=== PATIENT | female | born 1950 | race Caucasian/White ===

== ENCOUNTER 2020-08-10 11:09 | Outpatient (CLI) | payer MEDICARE, SELFPAY | END 2020-08-10 11:10 | disposition home or self-care (01) | PROVIDERS: PCP Family Medicine; Referring Provider Internal Medicine Endocrinology, Diabetes & Metabolism; Visit Provider Family Medicine | DX: Q78.2 Osteopetrosis (principal); R00.2 Palpitations; Z13.1 Encounter for screening for diabetes mellitus | CPT/HCPCS: 36415; 84443 ==

== ENCOUNTER 2020-08-16 10:37 | Outpatient (CLI) | payer MEDICARE, SELFPAY ==
[2020-08-16 11:27] LABS: Basophils Percent Auto 0.6 % (0.2-1.2); Eosinophils Absolute Auto 0.2 K/mm3 (0-0.3); Eosinophils Percent Auto 2.8 % (0-4.4); Hematocrit 40.9 % (37.0-47.0); Hemoglobin 13.3 g/dL (12.0-15.0); Immature Granulocyte Absolute 0.02 K/mm3 (0.00-0.031); Immature Granulocyte Percent A 0.3 % (0-0.5); Lymphocytes Absolute Auto 1.44 K/mm3 (0.9-3.2); Lymphocytes Percent Auto 22.8 % (18.3-44.2); Mean Corpuscular HGB Conc 32.5 g/dl (32-36); Mean Corpuscular Hemoglobin 31.1 pg (26-34); Mean Corpuscular Volume 95.8 fl (80-100); Mean Platelet Volume 8.9 fl (7.4-10.4); Monocytes Absolute Auto 0.5 K/mm3 (0.1-0.6); Monocytes Percent Auto 8.2 % (2.6-8.5); Neutrophils Absolute Auto 4.1 K/mm3 (1.3-6.7); Neutrophils Percent Auto 65.3 % (45.5-73.1); Platelet Count Result 293 k/mm3 (150-375); Red Blood Count 4.27 M/mm3 (4.2-5.4); Red Cell Distribution Width 13.5 % (11.5-14.5); White Blood Count 6.3 K/mm3 (4.5-10.0)
[2020-08-16 11:36] LABS: Alanine Aminotransferase 19 U/L (4-35); Albumin Level 3.6 g/dL (3.5-5.1); Alkaline Phosphatase 59 U/L (38-126); Anion Gap 2 mmol/L (8-16); Aspartate Amino Transferase 25 U/L (14-36); Bilirubin,Total 0.3 mg/dL (0.2-1.3); Blood Urea Nitrogen 15 mg/dL (7-17); Calcium 8.6 mg/dL (8.4-10.2); Carbon Dioxide 31 mmol/L (22-30); Chloride 103 mmol/L (98-107); Estimated Glomerular Filt Rate > 60; Glucose 97 mg/dL (65-105); Potassium 3.9 mmol/L (3.4-5.0); Sodium 136 mmol/L (137-145)
[2020-08-16 19:19] LABS: Total Volume 24 Hour Urine 1500 ml
[2020-08-16 19:29] LABS: Creatinine Urine 71.9 mg/dL
[2020-08-18 11:15] LABS: Collagen Type I C-Telopeptide 279 pg/mL (***); Osteocalcin 14 ng/mL (8-32)
[2020-08-22 08:35] LABS: Creatinine, Random Urine 34 mg/dL (20-275); N-Telopeptide (NTx) 23 (***)
== END 2020-08-16 10:38 | disposition home or self-care (01) ==
LOC: ANHLAB 10:39
PROVIDERS: PCP Family Medicine; Visit Provider Internal Medicine Endocrinology, Diabetes & Metabolism
DX: M81.0 Age-related osteoporosis without current pathological fracture (principal)
CPT/HCPCS: 36415; 80053; 81050; 82523; 82570; 83937; 85025

== ENCOUNTER 2021-07-07 02:07 | Day surgery (SDC) | payer MEDICARE, SELFPAY ==
[2021-06-10 09:45] VITALS: BMI 31.9
[2021-07-07 11:09] VITALS: BP 127/80; PULSE 92; RESP 17; TEMP 37.1; O2SAT 98; BMI 31.2
[2021-07-07] MEDS: LACTATED RINGERS 1,000 ML 150 ML IV CONT (11:11)
--- NOTE | 2021-07-07 11:24 | WPDANESEPPF ---
Anes - Initial Pre Proc Eval Procedure: Operation Date: 07/07/21 12:30 Proposed Procedures p Esophagogastroduodenoscopy & Colonoscopy - Akshat Vega MD Date/Time: 07/07/21 11:24 Surgeon: Akshat Vega MD Pre Op Diagnosis: BELINDA Patient Data Age: 70 Gender: F Height: 1.6 m Weight: 80 kg Last Vital Signs Temp 98.7 F 07/07/21 11:09 Pulse 92 07/07/21 11:09 Resp 17 07/07/21 11:09 BP 127/80 07/07/21 11:09 Pulse Ox 98 07/07/21 11:09 Allergies Allergy/AdvReac Type Severity Reaction Status Date / Time ranitidine Allergy Severe Nausea and Verified 07/07/21 11:07 Vomiting cimetidine Allergy Unknown Vomiting Verified 07/07/21 11:07 erythromycin base Allergy Unknown unknown Verified 07/07/21 11:07 Sulfa (Sulfonamide Allergy Unknown Rash Verified 07/07/21 11:07 Antibiotics) Home Medications Medication Instructions Recorded Confirmed Type aspirin 81 mg tablet,delayed 81 mg PO DAILY 07/18/19 07/07/21 History release multivitamin 1 tablet PO DAILY 07/18/19 07/07/21 History acetaminophen 650 mg 650 mg PO Q12H PRN 10/14/19 07/07/21 History tablet,extended release albuterol sulfate 90 mcg/actuation 2 puff INHALATION Q4H PRN #18 gm 10/14/19 07/07/21 Rx aerosol inhaler melatonin 5 mg capsule 5 mg PO HS PRN 10/14/19 07/07/21 History zoledronic acid 5 mg/100 mL in 5 mg IVPB ONCE #100 ml 10/06/20 07/07/21 Rx mannitol 5 %-water intravenous piggybck hydrocodone 10 mg-acetaminophen 1 tablet PO Q6H PRN #28 tablet 06/23/21 07/07/21 Rx 325 mg tablet bupropion HCl 300 mg PO DAILY 06/28/21 07/07/21 History pantoprazole 40 mg PO DAILY 06/28/21 07/07/21 History sertraline 25 mg PO DAILY 06/28/21 07/07/21 History trazodone 50 mg tablet 50 mg PO QHS PRN #30 tablet 07/04/21 07/07/21 Rx meloxicam 7.5 mg tablet 7.5 mg PO DAILY #90 tablet 07/07/21 07/07/21 Rx ropinirole 0.5 mg tablet 0.5 mg PO QHS #90 tablet 07/07/21 07/07/21 Rx Patient hx anesthesia problems: none Family hx anesthesia problems: none Results Review: All pre-operative results and documents have been reviewed as part of the pre-operative evaluation. [facility] Past Medical History Medical History Barretts esophagus Mild intermittent asthma Osteoporosis not affecting current episode of care Palpitations Screening for cholesterol level (~07/18/19) Screening for deficiency anemia (~07/18/19) Severe osteopetrosis Surgical History Surgical History H/O: hysterectomy Family History Family History Sibling Family history of obesity Family history of osteoporosis Depression Hypertension Family history of gastrointestinal disorder Family history of elevated blood lipids Family history of condition Family history of attention deficit hyperactivity disorder (ADHD) Diabetes mellitus Mother Family history of osteoporosis Depression Family history of diabetes mellitus in first degree relative Family history of atrial fibrillation Family history of congestive heart failure Diabetes mellitus Father Depression Family history of diabetes mellitus in first degree relative Family history of coronary artery disease Diabetes mellitus Family history of cardiovascular disease, Onset Age: 89 Other Family history of hypothyroidism Family history of mental disorder Social History Social History Smoking packs per day: 0.75 Smoking cigarettes per day: 15.0 Years smoked: 30 Smoking pack-years: 22.50 Smoking status: Current some day smoker Smoking end date: 09/17/00 Alcohol intake: current Substance use: never Substance use type: does not use Living arrangements: with family Additional occupation/education comments: RN at [employer] Gender identity (if verbalized
--- NOTE | 2021-07-07 11:53 | PM.HPGS ---
History of Present Illness History of Present Illness Consent: Risks, benefits, and alternatives have been discussed and questions answered. Patient agrees to proceed with procedure. Chief complaint: BELINDA Narrative: Elaine Herrera is a 70 year old female who has been investigated for iron deficiency anemia. She had hemoglobin of 13 last year. Now it is 10.7. She has not seen blood in her stools. She does have a history of Kruse's esophagus which was last investigated a little over 2 years ago. She remains on PPI for that. Her last colonoscopy was 7 years ago Review of Systems Review of Systems: All systems reviewed & are unremarkable except as noted in HPI and below PMFSH Past Medical History Medical History Barretts esophagus Mild intermittent asthma Osteoporosis not affecting current episode of care Palpitations Screening for cholesterol level (~07/18/19) Screening for deficiency anemia (~07/18/19) Severe osteopetrosis Surgical History Surgical History H/O: hysterectomy Family History Family History Sibling Family history of obesity Family history of osteoporosis Depression Hypertension Family history of gastrointestinal disorder Family history of elevated blood lipids Family history of condition Family history of attention deficit hyperactivity disorder (ADHD) Diabetes mellitus Mother Family history of osteoporosis Depression Family history of diabetes mellitus in first degree relative Family history of atrial fibrillation Family history of congestive heart failure Diabetes mellitus Father Depression Family history of diabetes mellitus in first degree relative Family history of coronary artery disease Diabetes mellitus Family history of cardiovascular disease, Onset Age: 89 Other Family history of hypothyroidism Family history of mental disorder Social History Social History Smoking packs per day: 0.75 Smoking cigarettes per day: 15.0 Years smoked: 30 Smoking pack-years: 22.50 Smoking status: Current some day smoker Smoking end date: 09/17/00 Alcohol intake: current Substance use: never Substance use type: does not use Living arrangements: with family Additional occupation/education comments: RN at [employer] Gender identity (if verbalized by the patient): Female Spiritual care concerns: No Agree to blood products: Yes Meds Home Medications and Allergies Home Medications Medication Instructions Recorded Confirmed Type aspirin 81 mg tablet,delayed 81 mg PO DAILY 07/18/19 07/07/21 History release multivitamin 1 tablet PO DAILY 07/18/19 07/07/21 History acetaminophen 650 mg 650 mg PO Q12H PRN 10/14/19 07/07/21 History tablet,extended release albuterol sulfate 90 mcg/actuation 2 puff INHALATION Q4H PRN #18 gm 10/14/19 07/07/21 Rx aerosol inhaler melatonin 5 mg capsule 5 mg PO HS PRN 10/14/19 07/07/21 History zoledronic acid 5 mg/100 mL in 5 mg IVPB ONCE #100 ml 10/06/20 07/07/21 Rx mannitol 5 %-water intravenous piggybck hydrocodone 10 mg-acetaminophen 1 tablet PO Q6H PRN #28 tablet 06/23/21 07/07/21 Rx 325 mg tablet bupropion HCl 300 mg PO DAILY 06/28/21 07/07/21 History pantoprazole 40 mg PO DAILY 06/28/21 07/07/21 History sertraline 25 mg PO DAILY 06/28/21 07/07/21 History trazodone 50 mg tablet 50 mg PO QHS PRN #30 tablet 07/04/21 07/07/21 Rx meloxicam 7.5 mg tablet 7.5 mg PO DAILY #90 tablet 07/07/21 07/07/21 Rx ropinirole 0.5 mg tablet 0.5 mg PO QHS #90 tablet 07/07/21 07/07/21 Rx Allergies Allergy/AdvReac Type Severity Reaction Status Date / Time ranitidine Allergy Severe Nausea and Verified 07/07/21 11:07 Vomiting cimetidine Allergy Unknown Vomiting Verified 07/07/21 11:07 erythromycin b
[2021-07-07 12:50] VITALS: BP 124/74; PULSE 77; RESP 29; O2SAT 100
[2021-07-07 13:00] VITALS: BP 130/75; PULSE 76; RESP 20; O2SAT 100
[2021-07-07 13:10] VITALS: BP 126/79; PULSE 75; RESP 20; O2SAT 95
== END 2021-07-07 13:30 | disposition home or self-care (01) ==
PROVIDERS: PCP Family Medicine; Visit Provider Internal Medicine Gastroenterology
PROC: 0DJ08ZZ Inspection of Upper Intestinal Tract, Via Natural or Artificial Opening Endoscopic (ICD-10-PCS; CPT 43235; principal; 2021-07-07 12:30)
DX: D50.9 Iron deficiency anemia, unspecified (principal); K57.30 Diverticulosis of large intestine without perforation or abscess without bleeding; K22.70 Barrett's esophagus without dysplasia; K44.9 Diaphragmatic hernia without obstruction or gangrene; K21.00 Gastro-esophageal reflux disease with esophagitis, without bleeding; Z79.82 Long term (current) use of aspirin; Z79.51 Long term (current) use of inhaled steroids; M81.0 Age-related osteoporosis without current pathological fracture; J45.20 Mild intermittent asthma, uncomplicated; F17.210 Nicotine dependence, cigarettes, uncomplicated; E66.9 Obesity, unspecified; Z68.31 Body mass index [BMI] 31.0-31.9, adult
CPT/HCPCS: 45378; 43239; 88305; J2704; J7120

== ENCOUNTER 2021-10-24 11:49 | Outpatient (CLI) | payer MEDICARE, SELFPAY ==
[2021-10-24 17:09] LABS: Anion Gap 4 mmol/L (8-16); Blood Urea Nitrogen 12 mg/dL (7-17); Calcium 9.8 mg/dL (8.4-10.2); Carbon Dioxide 28 mmol/L (22-30); Chloride 102 mmol/L (98-107); Estimated Glomerular Filt Rate > 60; Glucose 95 mg/dL (65-110); Potassium 4.3 mmol/L (3.4-5.0); Sodium 134 mmol/L (137-145)
[2021-10-24 17:29] LABS: Vitamin D 25 Hydroxy 44.5 ng/mL
[2021-10-26 14:26] LABS: Collagen Type I C-Telopeptide 251 pg/mL (***); Osteocalcin 15 ng/mL (8-32)
== END 2021-10-24 11:50 | disposition home or self-care (01) ==
PROVIDERS: PCP Family Medicine; Referring Provider Internal Medicine Endocrinology, Diabetes & Metabolism; Visit Provider Internal Medicine Endocrinology, Diabetes & Metabolism
DX: M81.0 Age-related osteoporosis without current pathological fracture (principal); S22.060A Wedge compression fracture of T7-T8 vertebra, initial encounter for closed fracture; R79.89 Other specified abnormal findings of blood chemistry; X58.XXXA Exposure to other specified factors, initial encounter
CPT/HCPCS: 36415; 80048; 82306; 82523; 83937

== ENCOUNTER 2023-10-18 01:33 | Day surgery (SDC) | payer MEDICARE, SELFPAY ==
[2023-09-27 10:38] VITALS: BMI 30.1
--- NOTE | 2023-10-16 09:09 | SUR.PREOP ---
Patient called regarding upcoming procedure. Reviewed preop instructions, appointment times, and procedure prep.
--- NOTE | 2023-10-17 16:10 | PM.HPGS ---
History of Present Illness History of Present Illness Consent: Risks, benefits, and alternatives have been discussed and questions answered. Patient agrees to proceed with procedure. Chief complaint: Nausea with vomiting unspecified Narrative: Elaine Herrera is a 73 year old female referred for follow-up of Kruse's esophagus. This was originally diagnosed about 10 years ago. She is also troubled by his nausea and vomiting intermittently over the past year. This almost always occurs at night. She will wake up coughing or gagging at times she cannot catch her breath. She has also lost about 14 lb in the past year. Review of Systems Review of Systems: All systems reviewed & are unremarkable except as noted in HPI and below PMFSH Past Medical History Medical History Barretts esophagus Cataract Cervical radiculopathy Constipation by delayed colonic transit Decreased serum protein level Dependence on other enabling machines and devices Depression with suicidal ideation WOODARD (dyspnea on exertion) Essential hypertension GERD (gastroesophageal reflux disease) History of gastroesophageal reflux (GERD) Hx MRSA infection Hx of fracture Hx of macrocytic anemia Hypersomnia Irregular heart beat MDD (major depressive disorder) Mild intermittent asthma BETSY on CPAP Osteoporosis not affecting current episode of care Palpitations Pulmonary emphysema Pure hypercholesterolemia Screening for cholesterol level (~07/18/19) Screening for deficiency anemia (~07/18/19) Severe osteopetrosis Vitamin D deficiency Surgical History Surgical History H/O kyphoplasty H/O: hysterectomy History of cataract surgery History of sinus surgery History of tonsillectomy and adenoidectomy Family History Family History Sibling Family history of obesity Family history of osteoporosis Depression Hypertension Family history of gastrointestinal disorder Family history of elevated blood lipids Family history of condition Family history of attention deficit hyperactivity disorder (ADHD) Diabetes mellitus Mother Family history of osteoporosis Depression Family history of diabetes mellitus in first degree relative Family history of atrial fibrillation Family history of congestive heart failure Diabetes mellitus Father Depression Family history of diabetes mellitus in first degree relative Family history of coronary artery disease Diabetes mellitus Family history of cardiovascular disease, Onset Age: 89 Other Family history of hypothyroidism Family history of mental disorder Social History Social History Smoking packs per day: 0.75 Smoking cigarettes per day: 15.0 Years smoked: 35 Smoking pack-years: 26.25 Smoking status: Former smoker Tobacco type: cigarettes Smoking end date: 09/17/00 Alcohol intake: current Drinks per week: 3 Alcohol use details: WINE-GLASSES Substance use: never Substance use type: does not use Lack of Transportation: No Lack of Food: Never True Current Housing: I Have Housing Concerned About Future Housing: No Difficulty Paying Gas/Electric Bills: No Difficulty Paying for Meds: No Currently Unemployed: No Difficulty w/ Childcare or Family Care: No Living arrangements: with family Occupation/Education: retired Additional occupation/education comments: RN at [employer] Gender identity (if verbalized by the patient): Female Spiritual care concerns: No Agree to blood products: Yes Meds Home Medications and Allergies Home Medications Medication Instructions Recorded Confirmed Type acetaminophen 650 mg 650 mg PO Q12H PRN Pain 10/14/19 09/27/23 History tablet,extended release (Tylenol Arthritis Pain) zoledronic acid 5 mg/10
[2023-10-18 12:16] VITALS: BP 126/76; PULSE 69; RESP 20; TEMP 36.3; O2SAT 96
[2023-10-18] MEDS: LACTATED RINGERS 1,000 ML 150 ML IV CONT (12:27)
--- NOTE | 2023-10-18 12:47 | WPDANESEPPF ---
Anes - Initial Pre Proc Eval Procedure: Operation Date: 10/18/23 13:00 Proposed Procedures p Esophagogastroduodenoscopy - Akshat Vega MD Date/Time: 10/18/23 12:47 Surgeon: Akshat Vega MD Pre Op Diagnosis: Nausea with vomiting unspecified Patient Data Age: 73 Gender: F Height: 1.6 m Weight: 76 kg Last Vital Signs Temp 36.3 C L 10/18/23 12:16 Pulse 69 10/18/23 12:16 Resp 20 10/18/23 12:16 BP 126/76 10/18/23 12:16 Pulse Ox 96 10/18/23 12:16 O2 Del Method Room Air 10/18/23 12:16 Allergies Allergy/AdvReac Type Severity Reaction Status Date / Time cimetidine Allergy Severe Vomiting Verified 10/18/23 12:15 ranitidine Allergy Severe Nausea and Verified 10/18/23 12:15 Vomiting erythromycin base Allergy Intermediate Nausea and Verified 10/18/23 12:15 Vomiting Sulfa (Sulfonamide Allergy Intermediate Rash Verified 10/18/23 12:15 Antibiotics) Home Medications Medication Instructions Recorded Confirmed Type acetaminophen 650 mg 650 mg PO Q12H PRN Pain 10/14/19 09/27/23 History tablet,extended release (Tylenol Arthritis Pain) zoledronic acid 5 mg/100 mL in IV Q12M 12/27/22 09/25/23 History mannitol 5 %-water intravenous piggybck (Reclast) budesonide 160 mcg-glycopyr 9 2 inh inhalation BID 02/05/23 09/27/23 History mcg-formot 4.8 mcg/actuation HFA inhaler (Breztri Aerosphere) estradiol 0.01% (0.1 mg/gram) See Rx Instructions vaginal 04/05/23 09/27/23 History vaginal cream (Estrace) .COMPLEX PRN DRYNESS cholecalciferol (vitamin D3) 125 125 mcg PO DAILY 05/11/23 09/27/23 History mcg (5,000 unit) capsule pantoprazole 40 mg tablet,delayed See Rx Instructions .Route 09/20/23 09/27/23 Rx release .COMPLEX #90 tabs famotidine 40 mg tablet (Pepcid) 40 mg PO QHS 1 month #30 tabs 09/25/23 09/27/23 Rx docusate sodium 50 mg capsule 50 mg PO HS 09/27/23 09/27/23 History duloxetine 30 mg capsule,delayed 30 mg PO DAILY 09/27/23 09/27/23 History release (Cymbalta) ferrous sulfate 325 mg (65 mg 325 mg PO DAILY 09/27/23 09/27/23 History iron) tablet ropinirole 2 mg tablet 2 mg PO DAILY 09/27/23 09/27/23 History albuterol sulfate 90 mcg/actuation 2 inh inhalation Q4-6H PRN 10/10/23 Rx aerosol inhaler shortness of breath or wheezing #1 ea bupropion HCl 300 mg 24 hr tablet, 450 mg PO QAM #90 tabs 10/10/23 Rx extended release hydrochlorothiazide 25 mg tablet 25 mg PO DAILY PRN Edema 10/10/23 History meloxicam 7.5 mg tablet 7.5 mg PO DAILY #90 tabs 10/10/23 Rx trazodone 50 mg tablet 100 mg PO QHS PRN insomnia #90 tabs 10/10/23 Rx Patient hx anesthesia problems: none Family hx anesthesia problems: none Results Review: All pre-operative results and documents have been reviewed as part of the pre-operative evaluation. [facility] Past Medical History Medical History Barretts esophagus Cataract Cervical radiculopathy Constipation by delayed colonic transit Decreased serum protein level Dependence on other enabling machines and devices Depression with suicidal ideation WOODARD (dyspnea on exertion) Essential hypertension GERD (gastroesophageal reflux disease) History of gastroesophageal reflux (GERD) Hx MRSA infection Hx of fracture Hx of macrocytic anemia Hypersomnia Irregular heart beat MDD (major depressive disorder) Mild intermittent asthma BETSY on CPAP Osteoporosis not affecting current episode of care Palpitations Pulmonary emphysema Pure hypercholesterolemia Screening for cholesterol level (~07/18/19) Screening for deficiency anemia (~07/18/19) Severe osteopetrosis Vitamin D deficiency Surgical History Surgical History H/O kyphoplasty H/O: hysterectomy History of cataract surgery History of sinus surgery History of tonsillectomy and adenoidectomy Family History Family History (Reviewed 10/18/23 @ 12:47 by
[2023-10-18 13:28] VITALS: BP 119/72; PULSE 66; RESP 17; O2SAT 96
[2023-10-18 13:38] VITALS: BP 124/79; PULSE 74; RESP 20; O2SAT 97
[2023-10-18 13:48] VITALS: BP 129/79; PULSE 63; RESP 22; O2SAT 100
== END 2023-10-18 13:57 | disposition home or self-care (01) ==
PROVIDERS: PCP Physician Assistant Medical; Visit Provider Internal Medicine Gastroenterology
PROC: 0DJ08ZZ Inspection of Upper Intestinal Tract, Via Natural or Artificial Opening Endoscopic (ICD-10-PCS; CPT 43235; principal; 2023-10-18 13:00)
DX: K21.9 Gastro-esophageal reflux disease without esophagitis (principal); K22.70 Barrett's esophagus without dysplasia; Z79.51 Long term (current) use of inhaled steroids; I10 Essential (primary) hypertension; K59.01 Slow transit constipation; F32.9 Major depressive disorder, single episode, unspecified; J45.20 Mild intermittent asthma, uncomplicated; G47.33 Obstructive sleep apnea (adult) (pediatric); M81.0 Age-related osteoporosis without current pathological fracture; E78.00 Pure hypercholesterolemia, unspecified; J43.9 Emphysema, unspecified; E55.9 Vitamin D deficiency, unspecified; Z87.891 Personal history of nicotine dependence
CPT/HCPCS: 43239; 88305; J2001; J2704; J7120

== ENCOUNTER 2024-06-11 10:13 | Outpatient (CLI) | payer MEDICARE, SELFPAY ==
--- NOTE | ~2024-06-11 | CT_ITS ---
EXAMINATION: CT chest high resolution wo wa DATE: 06/11/2024 10:33 INDICATION: J84.10 - Pulmonary fibrosis, unspecified TECHNIQUE: Computed tomography (CT) of the chest was performed with 100 mL Omnipaque-350 intravenous contrast. Automated exposure control and iterative reconstruction technique were employed. The dose-l ength product was 122.87 mGy-cm. COMPARISON: Outside chest CT dated 06/16/2021. FINDINGS: CHEST: Thoracic aorta: No significant dilation. Mild arch calcification. Lung parenchyma and airways: Moderate diffuse peripheral reticulation. Small air cysts in the bilater al lower lobes. Biapical pleural scarring. Patent airways. Thoracic inlet, axillae and chest wall: No thyroid or soft tissue mass. No axillary lymphadenopathy. Mediastinum: No mass or lymphadenopathy. Prominent central pulmonary arteries. Calcified left hilar n odes. Heart and pericardium: Normal heart size. No pericardial effusion. Coronary artery calcifications: Mild. Pleura: No effusion or mass. Upper abdomen: No significant finding. Thoracic bones: No acute osseous finding in the chest. Moderate height loss at T7, with vertebroplast y cement. Stable superior endplate deformity and height loss at L1. IMPRESSION: Probable UIP pattern of interstitial lung disease, with mild interval progression since the prior [place] dy. CT findings suggestive of pulmonary arterial hypertension. Reviewed, dictated and finalized at location [facility]. IMPRESSION: Probable UIP pattern of interstitial lung disease, with mild interval progressi on since the prior study. CT findings suggestive of pulmonary arterial hypertension.
== END 2024-06-11 10:14 | disposition home or self-care (01) ==
PROVIDERS: PCP Physician Assistant Medical; Visit Provider Internal Medicine Pulmonary Disease
DX: J84.10 Pulmonary fibrosis, unspecified (principal); R91.8 Other nonspecific abnormal finding of lung field
CPT/HCPCS: 71250

== ENCOUNTER 2024-06-16 09:17 | Outpatient (CLI) | payer MEDICARE, SELFPAY ==
--- NOTE | 2024-06-16 16:14 | WPDSIXMINUTE ---
Six Minute Walk Procedure Procedure Performed Pulmonary Stress Test (6 min walk) Six Minute Walk Six Minute Walk: This is a 6 minute walk test. The test was performed and interpreted in accordance with the 2014 ERS/ATS task force guidelines. Findings: The patient's resting room air oxygen saturation measured by pulse oximetry was 95% and heart rate was 67 bpm. Patient ambulated for 366 meters and oxygen saturation remained 90 to 94%. Heart rate at the end of the study was 91 bpm. The patient did not qualify for supplemental oxygen at rest or with ambulation. There are no prior studies for comparison.
--- NOTE | 2024-06-16 16:15 | WPDPFTINT ---
PFT Procedure Performed PFT Procedure Performed Spirometry with Pre/Post Bronchodilator Plethysmography (Lung Vol) Diffusing Cap (DLCO) Flow Vol Loop PFT Interpretation This is a pulmonary function test with pre and post-bronchodilator spirometry, plethysmography and diffusing capacity. The test was performed and results interpreted in accordance with the 2019 and 2005 ATS/ERS Task Force guidelines respectively using the Global Lung Function Initiative-2012 reference equations. Patient demonstrated good effort and cooperation. Reproducibility criteria were met. The quality of the pre bronchodilator spirometry maneuver was Grade A and post bronchodilator spirometry maneuver was Grade A. Findings: Spirometry: The contour the inspiratory expiratory flow tracing are normal. The pre bronchodilator FVC is 2.18 L, 81% predicted. The pre bronchodilator FEV1 is 1.66 L, 80% predicted. The pre bronchodilator FEV1: FVC ratio 76%. The post bronchodilator FVC is 2.40 L, representing a 10% increase. The post bronchodilator FEV1 is 1.78 L, representing an 8% increase. The post bronchodilator FEV1: FVC ratio 74%. Plethysmography: The total lung capacity is 3.92 L, 80% predicted. The functional residual capacity is 2.08 L, 74% predicted. The residual volume is 1.69 L, 77% predicted. Diffusing capacity: The diffusing capacity unadjusted for hemoglobin and carboxyhemoglobin is 13.7, 69% predicted. The diffusing capacity adjusted for alveolar volume is 4.28, 100% predicted. In comparison to previous pulmonary function testing on 12/24/2018 the post bronchodilator FVC is unchanged from 2.65 L to 2.40 L. The post bronchodilator FEV1 is unchanged from 1.94 L to 1.78 L. The total lung capacity is decreased from 6.23 L to 3.92 L. The functional residual capacity has decreased from 4.38 L to 2.08 L. The residual volume has decreased from 3.50 L to 1.69 L. The diffusing capacity unadjusted for hemoglobin and carboxyhemoglobin is decreased from 16.9 to 13.7. The diffusing capacity adjusted for alveolar volume is unchanged from 4.27 to 4.28. Impression: The spirometry is normal without evidence of an obstructive abnormality. There is no significant improvement after inhaling a single dose of albuterol. The lung volumes are normal. The diffusing capacity is normal. In comparison to previous pulmonary function testing on 12/24/2018 there has been a greater than anticipated time dependent decrease in the total lung capacity, functional residual capacity, residual volume and diffusing capacity unadjusted for hemoglobin and carboxyhemoglobin with no significant change in the FVC, FEV1 or diffusing capacity adjusted for alveolar volume. Clinical correlation is recommended.
== END 2024-06-16 09:18 | disposition home or self-care (01) ==
PROVIDERS: PCP Physician Assistant Medical; Visit Provider Internal Medicine Pulmonary Disease
DX: J84.10 Pulmonary fibrosis, unspecified (principal); Z87.891 Personal history of nicotine dependence
CPT/HCPCS: 94060; 94618; 94726; 94729

== ENCOUNTER 2024-06-18 12:16 | Outpatient (CLI) | payer MEDICARE, SELFPAY ==
[2024-06-18 13:44] LABS: Vitamin D 25 Hydroxy 78.9 ng/mL
[2024-06-19 15:14] LABS: SS-A <1.0 NEG AI (<1.0 NEG); SS-B <1.0 NEG AI (<1.0 NEG)
[2024-06-19 15:39] LABS: Anti Cyclic Citrullinated Pept <16 UNITS
[2024-06-20 11:18] LABS: Anti Nuclear Antibody Pattern Cytoplasmic; Anti Nuclear Antibody Titer 1:40 titer
[2024-06-21 12:43] LABS: ANCA Screen NEGATIVE (NEGATIVE)
== END 2024-06-18 12:17 | disposition home or self-care (01) ==
LOC: ANHLAB 12:23
PROVIDERS: Internal Medicine Endocrinology, Diabetes & Metabolism; PCP Physician Assistant Medical; Visit Provider Internal Medicine Pulmonary Disease
DX: J84.10 Pulmonary fibrosis, unspecified (principal); R79.89 Other specified abnormal findings of blood chemistry; M81.0 Age-related osteoporosis without current pathological fracture
CPT/HCPCS: 36415; 82306; 86036; 86038; 86039; 86200; 86235

== ENCOUNTER 2024-07-15 14:16 | Outpatient (CLI) | payer MEDICARE, SELFPAY ==
--- NOTE | 2024-07-15 14:29 | ECHO_ITS ---
Patient Info Name: Elaine Herrera Age: 73 years : 1950 Gender: Female Ht: 62 in Wt: 150 lbs BSA: 1.74 m2 HR: 79 bpm BP: 120 / 71 mmHg Technical Quality: Fair Exam Date: 07/15/2024 2:45 PM Exam Location: Echo Lab Patient Status: Outpatient Admit Date: 07/15/2024 Staff Ordering Physician: Mendoza Webre MD Lubrication Worker: Vanda Moody RDCS Attending Provider: Mendoza Weber MD Referring Physician: Tia JARA; Exam Type: CA echo doppler color flow Study Info Indications R06.09 - Other forms of dyspnea - G47.33 sleep apnea - G47.33 Device dependence Complete two-dimensional, color flow and Doppler transthoracic echocardiogram is performed. Summary 1. Complete two-dimensional, color flow and Doppler transthoracic echocardiogram is performed. 2. Left ventricular chamber dimension is normal. 3. Left ventricular systolic function is normal, estimated at 60-65%. 4. The left ventricular diastolic function is grade I diastolic dysfunction. 5. E/e' 12 is mildly elevated. 6. Global longitudinal strain is normal at -17.4%. 7. Left atrial chamber dimension is mildly enlarged. 8. There is mild aortic valve sclerosis. 9. There is mild aortic valve regurgitation. 10. There is trace mitral valve regurgitation. 11. There is mild to moderate tricuspid valve regurgitation. 12. Mild pulmonary hypertension, estimated pulmonary arterial systolic pressure is 48 mmHg. 13. There is trace pulmonic regurgitation. Left Ventricle E/e' 12 is mildly elevated. Global longitudinal strain is normal at -17.4%. Left ventricular chamber dimension is normal. Left ventricular systolic function is normal, estimated at 60-65%. The left ventricular diastolic function is grade I diastolic dysfunction. Right Ventricle Right ventricular systolic function is normal and with normal TAPSE 2.4 cm. Right ventricular chamber dimension is normal. Left Atria Left atrial chamber dimension is mildly enlarged. Right Atria Right atrial chamber dimension is normal. Aortic Valve The aortic valve is trileaflet. There is mild aortic valve sclerosis. There is no aortic valve stenosis. There is mild aortic valve regurgitation. Pulmonic Valve There is trace pulmonic regurgitation. Mitral Valve There is no mitral valve stenosis. There is trace mitral valve regurgitation. Tricuspid Valve There is mild to moderate tricuspid valve regurgitation. Mild pulmonary hypertension, estimated pulmonary arterial systolic pressure is 48 mmHg. Pericardium/Pleural There is no pericardial effusion. Inferior Vena Cava Normal inferior vena cava with >50% collapse upon inspiration consistent with normal right atrial pressure, 5 mmHg. Aorta The aortic root size at the sinus of Valsalva is normal. Left Ventricular Outflow Tract Name Value Normal LVOT 2D LVOT Diameter 1.9 cm LVOT Doppler LVOT Peak Gradient 9 mmHg LVOT Mean Gradient 4 mmHg LVOT VTI 29 cm LVOT VTI/AV VTI Ratio 0.8 LVOT Stroke Volume 84 ml LVOT CO 6.4 l/min LVOT CI 3.7 l/min/m2 Pulmonic Valve Name Value Normal PV Doppler PV Peak Gradient 5 mmHg Mitral Valve Name Value Normal MV Doppler MV Decel Rogers 478 cm/s2 MV PHT 48 ms MV Area (PHT) 4.6 cm2 4.0-5.0 MV Diastolic Function MV E Peak Velocity 79 cm/s MV A Peak Velocity 112 cm/s MV E/A 0.7 MV Decel Time 165 ms Tricuspid Valve Name Value Normal TV Regurgitation Doppler TR Peak Velocity 326 cm/s TR Peak Gradient 32 mmHg Estimated PAP/RSVP RA Pressure 5 mmHg <=5 PA Systolic Pressure 48 mmHg <36 RV Systolic Pressure 48 mmHg <36 Aorta Name Value Normal Ascending Aorta Ao Root Diameter (MM) 2.4 cm Ao Root Diam Index (MM) 1.4 cm/m2 Aortic Valve Name Value Normal AV Doppler AV Peak Velocity 192 cm/s AV Peak Gradient 15 mmHg AV Mean Gradient 7 mmHg AV VTI 35 cm AV Area (Cont Eq VTI) 2.4 cm2 >=3.0 AV Area (Cont Eq Derik) 2.3 cm2 AV Regurgitation 2D LVOT Area 2.9 cm2 AV Regurgitation Doppler AR Decel Time 1,796 ms AR Decel Rogers 225 cm/s2 AR PHT 521 ms Ventricles Name Value Normal LV Dimensions 2D/MM IVS Diastolic Thickness (2D) 0.7 cm 0.6-1.0 IVS Diastole Thickness (MM) 0.9 cm 0.6-0.9 LVID Diastole (2D) 4.8 cm 3.8-5.2 LVID Diastole (MM) 4.9 cm 3.8-5.2 LVIW Diastolic Thickness (2D) 0.9 cm 0.6-0.9 LVIW Diastolic Thickness (MM) 0.9 cm 0.6-0.9 LVID Systole (2D) 2.8 cm 2.2-3.5 LVID Systole (MM) 2.8 cm 2.2-3.5 LVOT Diameter 1.9 cm LV Mass (2D Cubed) 125.94 g 67.00-162.00 LV Mass Index (2D Cubed) 72 g/m2 43-95 Relative Wall Thickness (2D) 0.37 LV Mass (MM Cubed) 155.77 g 67.00-162.00 LV Mass Index (MM Cubed) 89 g/m2 43-95 Relative Wall Thickness (MM) 0.37 LV Fractional Shortening/Ejection Fraction 2D/MM LV Fractional Shortening (2D) 40 % 27-45 LV Fractional Shortening (MM) 43 % 27-45 LV EF (MM Teicholz) 73 % 54-74 LV EF (2D Teicholz) 71 % 54-74 LV Diastolic Volume (4C MOD) 72 ml LV EF (4C MOD) 71 % LV Diastolic Volume (2C MOD) 39 ml LV EF (2C MOD) 71 % LV Diastolic Volume (BP MOD) 52 ml 46-106 LV Diastolic Volume Index (BP MOD) 30 ml/m2 29-61 LV Systolic Volume (BP MOD) 15 ml 14-42 LV Systolic Volume Index (BP MOD) 9 ml/m2 8-24 LV EF (BP MOD) 71 % 54-74 LV Diastolic Length (4C) 7.8 cm LV Systolic Length (4C) 6.0 cm LV Stroke Volume (4C MOD) 51 ml Atria Name Value Normal LA Dimensions LA Dimension (MM) 4.5 cm 2.7-3.8 LA Volume (4C A-L) 66 ml LA Volume (BP A-L) 63 ml RA Dimensions RA Area (4C) 16.7 cm2 <=18.0 EchoPAC Name Value Normal FABIAN AA peak sys SL (AWMA) 6.0 % AAS peak sys SL (AWMA) 25.9 % AI peak sys SL (AWMA) 18.5 % AL peak sys SL (AWMA) 17.2 % AP peak sys SL (AWMA) 16.2 % peak sys SL (AWMA) 23.6 % AVC (AWMA) 380 ms BA peak sys SL (AWMA) 18.3 % BAS peak sys SL (AWMA) 16.7 % BI peak sys SL (AWMA) 17.5 % BL peak sys SL (AWMA) 26.6 % BP peak sys SL (AWMA) 14.4 % BS peak sys SL (AWMA) 11.3 % G peak SL(A2C) (AWMA) 15.4 % G peak SL(A4C) (AWMA) 20.1 % G peak SL(APLAX) (AWMA) 16.8 % G peak SL(Avg) (AWMA) 17.5 % MA peak sys SL (AWMA) 8.5 % MAS peak sys SL (AWMA) 19.6 % IL peak sys SL (AWMA) 20.6 % ML peak sys SL (AWMA) 23.6 % MP peak sys SL (AWMA) 9.4 % MS peak sys SL (AWMA) 18.7 % Report Signatures
== END 2024-07-15 14:17 | disposition home or self-care (01) ==
LOC: ANHCARD 14:17
PROVIDERS: PCP Physician Assistant Medical; Visit Provider Internal Medicine Pulmonary Disease
DX: I35.8 Other nonrheumatic aortic valve disorders (principal); I08.3 Combined rheumatic disorders of mitral, aortic and tricuspid valves; I27.20 Pulmonary hypertension, unspecified; G47.33 Obstructive sleep apnea (adult) (pediatric); Z99.89 Dependence on other enabling machines and devices
CPT/HCPCS: 93306

== ENCOUNTER 2024-07-31 13:19 | Outpatient (CLI) | payer MEDICARE, SELFPAY ==
--- NOTE | 2024-08-01 14:19 | WPDSIXMINUTE ---
Six Minute Walk Procedure Procedure Performed Pulmonary Stress Test (6 min walk) Six Minute Walk Six Minute Walk: This is a 6 minute walk test. The test was performed and interpreted in accordance with the 2014 ERS/ATS task force guidelines. Findings: The patient's resting room air oxygen saturation measured by pulse oximetry was 97%, the heart rate was 69 bpm, and the modified Naseem dyspnea score was 0. Patient ambulated for 366 meters and oxygen saturation remained 93 to 97%. At the end of the study the heart rate was 78 bpm and the modified Naseem dyspnea score was 1 to 2. The patient did not qualify for supplemental oxygen at rest or with ambulation. There are no prior studies for comparison.
== END 2024-07-31 13:20 | disposition home or self-care (01) ==
LOC: ANHPFT 13:20
PROVIDERS: PCP Physician Assistant Medical; Visit Provider Internal Medicine Pulmonary Disease
DX: J84.10 Pulmonary fibrosis, unspecified (principal)
CPT/HCPCS: 94618

== ENCOUNTER 2024-12-31 14:21 | Outpatient (CLI) | payer MEDICARE, SELFPAY ==
--- NOTE | ~2024-12-31 | CT_ITS ---
CT Scan of the Chest without Contrast: Clinical Indication: Pulmonary fibrosis Technique: Contiguous sections were acquired throughout the chest without intravenous contrast. Dose reduction technique was used on this scan by utilizing automated exposure control and iterative recon struction technique. The dose-length product (DLP) was 142.35 mGy-cm. COMPARISON: 06/11/2024 Findings: There is no evidence of any significant mediastinal, hilar or axillary lymphadenopathy. The mediastin al soft tissues appear normal. There is no evidence of pleural or pericardial effusion. There is moderate emphysema. There is extensive peripheral chronic interstitial thickening and subple ural reticulation, probable upper lobe predominance. Images through the upper abdomen reveal no abnormalities. Stable compression fractures of L1, L2, and T7. Impression: Chronic interstitial pulmonary disease, essentially stable from prior exam. Moderate emphysema. Stable spinal compression fractures. Reviewed, dictated and finalized at [facility]. Impression: Chronic interstitial pulmonary disease, essentially stable from prior exam. Moderate emphysema. Stable spinal compression fractures.
--- OUTSIDE RECORDS SUMMARY | 2024-12-31 15:43 | XMS_ITS | Clinical Summary ---
Author Organization [facility] Address [address] [place] [address] Phone Care Team Providers Care Membership Coordinator Name Role Phone Tiffanie Quinones Jodie DO Primary Care Provide r Allergies Active Allergy Reactions Criticality Noted Date Comments Erythromycin Vomiting 01/18/2020 Sulfa Antibiotics Rash 01/18/2020 Medications buPROPion (WELLBUTRIN XL) 300 MG TABLET SR 24 HR XL tablet Take 300 mg by mouth every morning. Active aspirin 81 MG Chewable Tablet Take 81 mg by mouth daily. Active hydroCHLOROthiaz maria esther 12.5 MG Tablet Take by mouth daily. Active pantoprazole (PROTONIX) 40 MG Pack 40 mg by Per NG tube route daily. Active sertraline (ZOLOFT) 25 MG Tablet Take 25 mg by mouth daily. Active Fluticasone Propionate, Inhal, (FLOVENT IN) take by inhalation. Active Acetaminophen (TYLENOL PO) Take 650 mg by mouth. Active Active Problems No known active problems Social History Tobacco Use Types Packs/Day Years Used Date Smoking Tobacco: Never Assessed Comments Unknown Sex and Gender Information Value Date Recorded Sex Assigned at Not on file Legal Sex Female 2:16 PM CDT Gender Identity Not on file Sexual Orientation Not on file Plan of Treatment Health Maintenance Due Date Last Done Comments Hepatitis C Virus (HCV) Screening 1950 TdaP Immunization 1950 Colonoscopy 1996 Colorectal Cancer Screening 1996 Cologuard 2001 Immunochemical Fecal Occult Blood 2001 Pneumococcal Immunization (5 0+ years) (1 of 1 - PCV) 2001 Zoster Immunization (1 of 2) 2001 Influenza Immunization (#1) 2024 SARS-COV-2 Immunization ( season) 2024 08/01/2021, 12/06/2020, 10/28/2020 Respiratory Syncytial Virus (RSV) Immunization (Adult) (1 - 1-dose 75+ series) 2026 Hepatitis B Immunization Aged Out No longer eligible based on patient's age to complete this topic Meningococcal Immunization (ACWY) Aged Out No longer eligible b ased on patient's age to complete this topic Rotavirus Immunization Aged Out No lo nger eligible based on patient's age to complete this topic Insurance MEDICARE Care Teams Membership Coordinator Relationship Specialty Start Date End Date Tiffanie Quinones DO [address] [place] [id number] PCP - General Family Medicine 01/18/20
--- OUTSIDE RECORDS SUMMARY | 2024-12-31 15:43 | XMS_ITS | Clinical Summary ---
Author Organization [facility] Address [address] [place] [address] Care Team Providers Care Professional Shopper Name Role Phone Issa Hawkins MD Unavailable [phone] Dana Jim Primary Care Provider [phone] Allergies Active Allergy Reactions Criticality Noted Date Comments Erythromycin Vomiting 01/18/2020 Sulfa Antibiotics Rash Low 01/18/2020 Sertraline Vomiting 11/08/2023 Medications * This document contains information received from the source organization and may not represent a complete record from that organization. buPROPion XL 300 MG 24 hr tablet Take 1 tablet (300 mg total) by mouth daily. Active pantoprazole EC 40 MG tablet Take 40 mg by mouth daily. Active Senna 8.6 MG tablet Take 1 tablet by mouth daily as needed for Constipation. Active Albuterol Sulfate 108 (90 Base) MCG/ACT AEROSOL POWDER, BREATH ACTIVATED Inhale 2 puffs into the lungs every 4 (four) hours as needed (SOB). Active Acetaminophen 325 MG Cap Take 1 tablet by mouth 4 (four) times daily as needed. Active Meloxicam 7.5 MG TABLET DISPERSIBLE Take 1 tablet by mouth daily. Active rOPINIRole 0.5 MG tablet Take 1 mg by mouth nightly. Active zoledronic acid (RECLAST) 5 MG/100ML Solution infusion Inject 5 mg into the vein. yearly Active ferrous sulfate, 65 mg elemental, 325 (65 FE) MG tablet Take 325 mg by mouth daily as needed (after giving blood). Takes with breakfast Active Vitamin D3 125 mcg Tab Take 1 tablet (125 mcg total) by mouth daily. Active DULoxetine (CYMBALTA) 60 MG capsule Take 1 capsule (60 mg total) by mouth daily. Active hydroCHLOROthiaz maria esther (HYDRODIURIL) 25 MG tablet Take 1 tablet (25 mg total) by mouth daily as needed. Active traZODone (DESYREL) 150 MG tablet Take 0.5 tablets (75 mg total) by mouth nightly at bedtime. 4 Active amphetamine-dext roamphetamine XR (ADDERALL XR) 20 MG 24 hr capsule Take 1 capsule (20 mg total) by mouth every morning. 4 Active Active Problems Problem Noted Date Diagnosed Date COVID-19 08/28/2022 S/P kyphoplasty 09/05/2021 Osteoporosis 10/30/2019 Immunizations Immunization Administration Dates Next Due Tdap (Adacel) 06/12/2021 Family History Medical History Relation Comments Diabetes Brother 1 polio Brother 2 Diabetes Brother 3 Diabetes Father Heart Disease Father Diabetes Mother Breast Cancer Neg Hx Relation Status Comments Brother 1 Alive Brother 2 Brother 3 Alive Daughter Alive Father Mother Sister 1 Alive Sister 2 Alive Son 1 Alive Son 2 Alive Social History Tobacco Use Types Packs/Day Years Used Date Smoking Tobacco: Former Cigarettes 1 35 0 09/17/1964 - 09/17/1999 Smokeless Tobacco: Never Tobacco Cessation:Counseling Given: Not Answered Alcohol Use Standard Drinks/Week Comments Yes 0 (1 standard drink = 0.6 oz pure alcohol) socially, but on cruise drank everyday Comments No Sex and Gender Information Value Date Recorded Sex Assigned at Female 09/30/2024 12:05 PM 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 Legal Sex Female 8:31 PM CDT Gender Identity Female 09/07/2021 7:24 AM 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 Sexual Orientation Straight 09/07/2021 7: 24 AM 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 Last Filed Vital Signs Vital Sign Reading Time Taken Comments Blood Pressure 128/78 07/22/2024 9:30 AM 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 Pulse 92 07/22/2024 9:30 AM 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 Temperature 36.6 C (97.8 F) 07/22/2024 9:30 AM 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 Respiratory Rate 18 07/22/2024 9:30 AM 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 Oxygen Saturation 95% 11/10/2023 7:43 AM 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 Inhaled Oxygen Concentration - - Weight 68.5 kg (151 lb) 07/22/2024 9:30 AM 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 Height 160 cm (5' 3 ) 11/10/2023 7:43 AM 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 Body Mass Index 26.75 11/10/2023 7:43 AM 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 Plan of Treatment Health Maintenance Due Date Last Done Comments Colorectal Cancer Screening Colonoscopy (10 Years) 1950 Hepatitis C 1969 Zoster Vaccines (1 of 2) 2001 Pneumococcal Vaccine: 50+ Years (2 of 2 - PCV) 03/13/2016 03/13/2015 Annual Medicare Wellness Visit 2016 COVID-19 Vaccine ( season) 2024 10/23/2023, 07/05/2022, 08/01/2021, Additional history exists Mammogram Screening 03/29/2025 03/29/2023, 09/19/2021, 04/22/2020, Additional history exists DTaP, Tdap and Td Vaccines (2 - Td or Tdap) 06/12/2031 06/12/2021 Colorectal Cancer Screening FIT/FOBT (1 Year) Discontinued 06/06/2021 Dexa Scan (General) Completed 12/11/2022, 09/19/2021, 06/28/2020, Additional history exists RSV Immunization or 60+ Years Completed 07/25/2023 Meningococcal B Vaccine Aged Out No l onger eligible based on patient's age to complete this topic Meningococcal Vaccine Aged Out No cory rubens eligible based on patient's age to complete this topic RSV Immunizations Under 20 Months Aged Out No longer eligible based on patient's age to complete this topic Medical Devices Implanted Type Area Store Operations Specialist Device Identifier Shelf Expiration Date Model / Serial / Lot Vertaplex Hv Implanted:Qt y: 1 on 08/29/2021 by Gentry Broderick MD at [facility] [employer] Cement Implant N/A: Thoracic CAL SPINE - DIV CAL BELÉN [id number] 10/17/2022 / / [id number] Procedures Procedure Name Priority Date/Time Associated Diagnosis Comments MG SCREENING W KARY LETI DIGI Routine 03/29/2023 3:23 PM CDT Visit for screening mammogram BONE DENSITY/DEXA Routine 12/11/2022 12: 49 PM CDT Age-related osteoporosis without current pathological fracture OCCULT BLOOD, FECES Routine 06/06/2021 9:00 AM CDT Diarrhea from Last 3 Months or Most Recently Relevant to Health Maintenance Results * MG SCREENING W KARY LETI DIGI (03/29/2023 3:23 PM CDT) Anatomical Region Laterality Modality Breast Bilateral Mammography 03/29/2023 6:04 PM CDT Narrative 03/29/2023 6:07 PM CDT Examination: Screening bilateral mammogram Exam Date: 03/29/2023 3:09 PM Clinical history: Routine screening. Previous benign left breast biopsy. Previous right breast excisional biopsy. Comparison: 09/19/2021, 04/22/2020 Technique: Digital screening mammography of both breasts was performed. Breast tomosynthesis acquisitions were obtained and reviewed. This study was read with the assistance of a computer-aided detection system. Tissue density: There are scattered areas of fibroglandular density. Findings: The breast parenchymal findings are stable. Chronic biopsy changes are noted. Benign-appearing calcifications bilaterally. No suspicious masses, malignant appearing calcifications, skin thickening or other abnormalities are present. No significant change from the prior exam. IMPRESSION: No suspicious mammographic findings. Recommendation: 1. Routine Screening, Bilateral Assessment: ACR BI-RADS 2 - BENIGN FINDING(S) Ordered By: MARTHA PERSON Interpreted By: Erick Strange MD, 03/29/2023 6:04 PM us Martha Person [employer]TER MAMMO Fi nal Result * BONE DENSITY/DEXA (12/11/2022 12:49 PM CDT) Anatomical Region Laterality Modality Bone Bone Density 12/11/2022 3:23 PM CDT Narrative 12/11/2022 3:25 PM CDT IMAGING STUDIES: BONE DENSITY/DEXA DATE: 12/11/2022 12:31 PM CLINICAL HISTORY: Postmenopausal. On calcium replacement therapy. 72-year-old female with hysterectomy at age 38 FINDINGS: LUMBAR SPINE L2-L4: BMD: 0.794 g/sq cm T-SCORE: -2.6 WHO CLASSIFICATION: Mild osteoporosis FRACTURE RISK: Moderate LEFT FEMORAL NECK: BMD: 0.624 T-SCORE: -2.0 WHO CLASSIFICATION: Very osteopenic FRACTURE RISK: Low COMPARISON STUDY: 09/19/2021. LUMBAR SPINE L2-L4: BMD: 0.737 T-SCORE: -3.1 WHO CLASSIFICATION: Moderate osteoporosis FRACTURE RISK: Moderately high LEFT FEMORAL NECK: BMD: 0.669 T-SCORE: -1.6 WHO CLASSIFICATION: Moderate osteopenia FRACTURE RISK: Very low Recommendation. Continuation of calcium replacement therapy with repeat imaging in 2 years Ordered By: EARLENE VILCHIS Interpreted By: Noreen Jordan, 12/11/2022 3:23 PM Procedure Note Rasta Jordan MD - 12/11/2022 IMAGING STUDIES: BONE DENSITY/DEXA DATE: 12/11/2022 12:31 PM CLINICAL HISTORY: Postmenopausal. On calcium replacement therapy.72-year-old female with hysterectomy at age 38 FINDINGS: LUMBAR SPINE L2-L4: BMD: 0.794 g/sq cm T-SCORE: -2.6 WHO CLASSIFICATION: Mild osteoporosis FRACTURE RISK: Moderate LEFT FEMORAL NECK: BMD: 0.624 T-SCORE: -2.0 WHO CLASSIFICATION: Very osteopenic FRACTURE RISK: Low COMPARISON STUDY: 09/19/2021. LUMBAR SPINE L2-L4: BMD: 0.737 T-SCORE: -3.1 WHO CLASSIFICATION: Moderate osteoporosis FRACTURE RISK: Moderately high LEFT FEMORAL NECK: BMD: 0.669 T-SCORE: -1.6 WHO CLASSIFICATION: Moderate osteopenia FRACTURE RISK: Very low Recommendation. Continuation of calcium replacement therapy with repeatimaging in 2 years Ordered By: EARLENE VILCHIS Interpreted By: Noreen Jordan, 12/11/2022 3:23 PM Earlene Vilchis MD DEXA Final Result * OCCULT BLOOD, FECES (06/06/2021 9:00 AM CDT) OCCULT BLOOD FECAL NEGATIVE NEGATIVE 06/06/2021 2:30 PM CDT [facility] STOOL SPECIMEN / Unknown 06/06/2021 9:00 AM CDT Davonte Cardenas MD,PHD BODY FLUIDS AND STOOLS ORD ERABLES Final Result [facility] [id number] [place] [address], [place] [phone] from Last 3 Months or Most Recently Relevant to Health Maintenance Insurance [facility] Advance Directives Documents on File Type Date Recorded Patient Crop Consultant Expl anation Advance Directives and Living Will 08/30/2022 3:18 PM 08/29/2022 CT STATUTORY SHORT FORM POA FOR HEALTH CARE * Full Code (Latest Code Status on File) Date Activated Date Inactivated Comments 08/28/2022 2:26 PM 08/29/2022 5:11 PM Care Teams Professional Shopper Relationship Specialty Start Date End Date Dana Jim PA [address] [place] [id number] PCP - General PHYSICIAN PACKAGING OPERATOR 09/30/24 Issa Hawkins MD [facility]. [facility] [address] [place] [address] Jose Bladder Blower CARDIOVASCULAR DISEASE 06/17/18
--- OUTSIDE RECORDS SUMMARY | 2024-12-31 15:43 | XMS_ITS | Clinical Summary ---
Author Organization [facility] at the [facility] Office Center Address [address] [place] [address] Care Team Providers Care Chenille Machine Operator Name Role Phone David Obregon MD Primary Care Provider [phone] Allergies Active Allergy Reactions Criticality Noted Date Comments Cimetidine Diarrhea Low 09/23/2019 Erythromycin Vomiting Low 01/18/2020 Sertraline Vomiting Low 11/08/2023 Sulfa (Sulfonamide Antibiotics) Rash Medium 11/2019 Sulfanilamide Rash Medium Medications hydroCHLOROthia zide (MICROZIDE) 12.5 mg capsule Take 1 capsule (12.5 mg total) by mouth daily as needed Active albuterol sulfate 90 mcg/actuation aerosol powdr breath activated Inhale 2 puffs every 6 (six) hours as needed Active senna (SENOKOT) 8.6 mg tablet Take 1 tablet by mouth Active buPROPion XL (WELLBUTRIN XL) 300 mg 24 hr tablet Take 1 tablet (300 mg total) by mouth daily Active meloxicam (MOBIC) 7.5 mg tablet 1 Active zoledronic acid/mannitol-w ater (RECLAST IV) Active acetaminophen 325 mg capsule Activ e cetirizine (ZyrTEC) 10 mg tablet Take 1 tablet daily 90 tablet 3 Active Additional Information Patient not taking.Reported on 03/05/[address] (PROTONIX) 40 mg EC tablet 3 Active budesonide-glyc opyr-formoterol (Breztri Aerosphere) 160-9-4.8 mcg/actuation inhaler INHALE 2 PUFFS TWICE DAILY 32.1 g 4 Active Active Problems Problem Noted Date Diagnosed Date Primary hypertension 10/16/2022 Thyroid nodule 08/03/2021 Assessment & Plan (08/03/2021 5:49 PM MONITOR CAR OPERATOR): I looked Mrs. Herrera 's thyroid under our ultrasound machine The thyroid looks very normal in size and, and very homogeneous There are probably a couple of a few mm cyst, but I do not see any, solid nodule of any concern. I have advised Mrs. Herrera to follow-up with me in a year for a repeat ultrasound ILD (interstitial lung disease) 10/23/2019 Assessment & Plan (01/08/2020 3:53 PM CDT): Patient CRP, LORIE,CURTIS, ANCA panel are normal. Repeat CT scan of the chest and PFTs in 6 months to see if there is any progression. Assessment & Plan (10/27/2019 1:35 PM MONITOR CAR OPERATOR): Patient CRP and IgE level are normal. He ESR is elevated at 48. CT scan of the chest with high-resolution reviewed. I will obtain 6 rheumatoid factor, LORIE panel, Anca panel and CURTIS panel. SOB (shortness of breath) 10/23/2019 Assessment & Plan (10/27/2019 1:34 PM MONITOR CAR OPERATOR): Continue with bronchodilators. I will obtain 2D echocardiogram for further evaluation of dyspnea. Mild intermittent asthma 10/23/2019 Assessment & Plan (01/08/2020 3:52 PM CDT): Continue with Symbicort and p.r.n. albuterol inhaler. Assessment & Plan (10/27/2019 1:34 PM MONITOR CAR OPERATOR): Continue with Symbicort and p.r.n. albuterol inhaler. Simple chronic bronchitis 09/23/2019 Assessment & Plan (10/06/2019 3:21 PM MONITOR CAR OPERATOR): PFT's show mild obstructive ventilatory defect with good response to bronchodilators. I will start her on Symbicort and continue with p.r.n. albuterol inhaler. Obtain IgE level. Abnormal CXR 09/23/2019 Assessment & Plan (10/06/2019 3:22 PM MONITOR CAR OPERATOR): I will obtain CT scan of the chest with high-resolution for further evaluation of lung parenchyma. Chronic cough 09/23/2019 Assessment & Plan (10/27/2019 1:35 PM MONITOR CAR OPERATOR): Cough is improved with inhaled bronchodilators which will be continued. Assessment & Plan (10/06/2019 3:22 PM MONITOR CAR OPERATOR): Obtain IgE level, give her a trial of inhaled corticosteroids. Obtain CT scan of the chest for further evaluation of lung parenchyma. Allergic rhinitis 09/23/2019 Assessment & Plan (01/08/2020 3:54 PM CDT): Continue with Flonase. Assessment & Plan (10/06/2019 3:22 PM MONITOR CAR OPERATOR): Start her on Flonase. Esophageal reflux 09/23/2019 Shortness of breath Immunizations Immunization Administration Dates Next Due Influenza, Trivalent, High D ose, Split, Preservative Free, Intramuscular 07/22/2019 Moderna Sars-cov-2 Bivalent Vaccine 50 Mcg/0.5 mL (12+ YRS)-Blue/Perez 07/05/2022 Surgical History Surgery Date Site/Laterality Comments OTHER SURGICAL HISTORY hysterectomy for stage 1 cervical cancer: nml paps since OTHER SURGICAL HISTORY breast biopsy X 2: benign OTHER SURGICAL HISTORY LICHEN SCLEROSUS: Q6 MO VULVAR EXAMS, CLOBETASOL IN ESOPHAGOGASTRODUODENOSCOP Y TRANSORAL DIAGNOSTIC Diagnostic Esophagogastroduodenoscopy - (Added by TW Conv) IN BX BREAST NEEDLE CORE W/O IMAGING GUIDANCE SPX Biopsy Breast Percutaneous Needle Core - (Added by TW Conv) CATARACT EXTRACTION, BILATERAL HYSTERECTOMY SINUS SURGERY TOE SURGERY 08/13/20 Left Great toe nail removed. Medical History Medical History Date Comments Hx Other Medical 1988 hysterectomy fo r stage 1 cervical cancer Hx Other Medical 1999 breast biopsy X 2 Hx Other Medical 1952 polio as a kid- --mild Depression Depression Hx Other Medical 2000 cath X 2 Hx Other Medical 2010 LICHEN SCLEROSU S Personal history of other di seases of the digestive system History of hiatal hernia - ( Added by TW Conv) Personal history of other me ntal and behavioral disorders History of depression - (Add ed by TW Conv) Dysphagia Difficulty swall owing - (Added by TW Conv) Other specified behavioral a nd emotional disorders with onset usually occurring in childhood and adolescence Attention deficit disorder w ithout hyperactivity - (Added by TW Conv) Osteoarthritis Arthritis - (Add ed by TW Conv) Uncomplicated asthma Asthma - (A dded by TW Conv) Dry eye syndrome Dry eye syndrom e - (Added by TW Conv) Acute poliomyelitis Polio - (Add ed by TW Conv) Age-related osteoporosis wit hout current pathological fracture Osteoporosis - (Added by TW Conv) Vitamin D deficiency Vitamin D d eficiency - (Added by TW Conv) Family History Medical History Relation Name Comments Other Daughter ASD; Coronary artery disease Father Fami ly history of coronary artery disease - (Added by TW Conv) Atrial fibrillation Mother Family h istory of atrial fibrillation - (Added by TW Conv) Depression Mother Family history of depression - (Added by TW Conv) Diabetes Mother Family history of diabetes mellitus - (Added by TW Conv) Depression Other 1 Family history of Depression; Coronary artery disease Other 2 Fami ly history of Coronary artery disease; Other Other 3 No family histo ry of Cancer, breast; Other Other 4 No family histo ry of Cancer, colon; Other Other 5 No family histo ry of Ovarian cancer; Hyperlipidemia Sister 1 Hyperlipidemi a; Hypertension Sister 2 Hypertension; Osteoporosis Sister 3 Osteoporosis; Depression Sister 4 Family history of depression - (Added by TW Conv) Relation Name Status Comments Daughter Father Mother Other 1 Other 2 Other 3 Other 4 Other 5 Sister 1 Sister 2 Sister 3 Sister 4 Social History Tobacco Use Types Packs/Day Years Used Date Smoking Tobacco: Former Cigarettes 1 29 1 971 - 1999 Smokeless Tobacco: Never Tobacco Cessation:Counseling Given: Not Answered Alcohol Use Standard Drinks/Week Comments Yes 0 (1 standard drink = 0.6 oz pur e alcohol) PHQ-2 Answer Date Recorded PHQ-2 Total Score (If total score is 3 or more points, staff should administer the PHQ-9) 4 08/03/2021 Comments Unknown Sex and Gender Information Value Date Recorded Sex Assigned at Not on file Legal Sex Female 11:32 PM MONITOR CAR OPERATOR Gender Identity Female 12/24/2019 7:05 PM CDT Sexual Orientation Straight 12/24/2019 7: 05 PM CDT Obstetrics History Last Filed Vital Signs Vital Sign Reading Time Taken Comments Blood Pressure 118/64 12/11/2023 3:05 PM CDT Pulse 88 12/11/2023 3:05 PM CDT Temperature 36.2 C (97.2 F) 12/11/2023 3:05 PM CDT Respiratory Rate 18 12/11/2023 3:05 PM CDT Oxygen Saturation 93% 12/11/2023 3:05 PM CDT Inhaled Oxygen Concentration - - Weight 73.5 kg (162 lb) 12/11/2023 3:05 PM CDT Height 160 cm (5' 3 ) 12/11/2023 3:05 PM CDT Body Mass Index 28.7 12/11/2023 3:05 PM CDT Plan of Treatment Health Maintenance Due Date Last Done Comments Colon Cancer Screening-Colonoscopy 1950 Fall Risk Assessment 1950 Hepatitis C Screening 1950 Hepatitis B Screening 1969 Zoster Vaccine (1 of 2) 2001 Breast Cancer Screening-Mammogram 10/13/2015 015, 03/21/2013 Pneumococcal vaccine 65+ (2 of 2 - PCV) 03/13/2016 03/13/2015 Well Visit 65+ 2016 Depression Screening 08/03/2022 08/03/2021 Covid-19 Vaccine (4 - 2023-2 5 season) 2024 07/05/2022, 12/06/2020, 10/28/2020 Osteoporosis Screening-Bone Density Scan 12/11/2024 12/11/2022, 06/07/2017, 04/13/2016, Additional history exists Influenza Vaccine (Season Ended) 2025 06/03/2020, 07/22/2019, 06/17/2017 DTaP/Tdap/Td Vaccine (2 - Td or Tdap) 06/12/2031 06/12/2021 Procedures Procedure Name Priority Date/Time Associated Diagnosis Comments BONE MINERAL DENSITY 06/07/2017 SCREENING MAMMOGRAM Routine 10/13/2014 2 :25 PM MONITOR CAR OPERATOR from Last 3 Months or Most Recently Relevant to Health Maintenance Results * BONE MINERAL DENSITY (06/07/2017) Anatomical Region Laterality Modality Radiographic Libra ging Narrative 06/07/2017 Ordered by an unspecified provider. Historical Provider MD EUCEDA DXA PROCEDURES Final Result * Screening Mammogram (10/13/2014 2:25 PM MONITOR CAR OPERATOR) Anatomical Region Laterality Modality Breast N/A Mammography 10/13/2014 2:25 PM MONITOR CAR OPERATOR Narrative 10/14/2014 8:38 AM MONITOR CAR OPERATOR MAURA BURGESS M.D. FINAL REPORT ACC# Date Time Exam [id number] Oct 13, 2014 14:25:00 [facility] [place] [id number] Screen Dig Brst Seth Bi EXAMINATION: Mammogram Technique: Bilateral Full Field Screening Mammography was performed with Tomosynthesis. Views obtained: bilateral craniocaudal and bilateral mediolateral oblique. Computer Aided Detection of the 2D images was performed with [employer] version 9.3. Mammogram Findings: The present examination has been compared to prior imaging studies performed at [facility] on 03/28/2013, 03/21/2013 and 07/27/2011. There are scattered fibroglandular densities. There is no suspicious abnormality in either breast. IMPRESSION: Annual screening mammography is recommended. OVERALL FINAL ASSESSMENT: BI-RADS CATEGORY 1: Negative. Requested By: Dictated By: MAURA BURGESS M.D. on Oct 14 2014 8:38A This document has been electronically signed by: MAURA BURGESS M.D. on Oct 14 2014 8:38A Procedure Note Provider, MD Lexa - 01/09/2017 MAURA BURGESS M.D. FINAL REPORT ACC# Date Time Exam [id number] Oct 13, 2014 14:25:00 [facility] [place] [id number] Screen Dig Brst Seth Bi EXAMINATION: Mammogram Technique: Bilateral Full Field Screening Mammography was performed with Tomosynthesis. Views obtained: bilateral craniocaudal and bilateral mediolateral oblique. Computer Aided Detection of the 2D images was performed with Feus[employer].3 version 9.3. Mammogram Findings: The present examination has been compared to prior imaging studies performed at [facility] on 03/28/2013, 03/21/2013 and 07/27/2011. There are scattered fibroglandular densities. There is no suspicious abnormality in either breast. IMPRESSION: Annual screening mammography is recommended. OVERALL FINAL ASSESSMENT: BI-RADS CATEGORY 1: Negative. Requested By: Dictated By: MAURA BURGESS M.D. on Oct 14 2014 8:38A This document has been electronically signed by: MAURA BURGESS M.D. on Oct 14 2014 8:38A [facility] Provider MD EUC[facility]A MAMMO PROCEDURES Emma l Result from Last 3 Months or Most Recently Relevant to Health Maintenance Insurance [employer] MEDICARE PPO [employer] CHOICE MEDICARE PPO Care Teams Chenille Machine Operator Relationship Specialty Start Date End Date David Obregon MD [address] [place] [id number] PCP - General Family Medicine 10/18/22
--- OUTSIDE RECORDS SUMMARY | 2024-12-31 15:43 | XMS_ITS | Referral Summary ---
Author Organization [facility] at the [facility] Office Center Address [address] [place] [address] Care Team Providers Care Laundry Bag Punch Operator Name Role Phone David Obregon MD Primary Care Provider [phone] Allergies Active Allergy Reactions Criticality Noted Date [...] 08/03/2021 Assessment & Plan (08/03/2021 5:49 PM SHAPER AND PRESSER): I looked Mrs. Herrera 's thyroid under [...] progression. Assessment & Plan (10/27/2019 1:35 PM SHAPER AND PRESSER): Patient CRP and IgE level are normal. He ESR is elevated at 48. CT scan of the chest with high-resolution reviewed. I will obtain 6 rheumatoid factor, LORIE panel, Anca panel and CURTIS panel. SOB (shortness of breath) 10/23/2019 Assessment & Plan (10/27/2019 1:34 PM SHAPER AND PRESSER): Continue with bronchodilators. I will obtain 2D echocardiogram for further evaluation of dyspnea. Mild intermittent asthma 10/23/2019 Assessment & Plan (01/08/2020 3:52 PM CDT): Continue with Symbicort and p.r.n. albuterol inhaler. Assessment & Plan (10/27/2019 1:34 PM SHAPER AND PRESSER): Continue with Symbicort and p.r.n. albuterol inhaler. Simple chronic bronchitis 09/23/2019 Assessment & Plan (10/06/2019 3:21 PM SHAPER AND PRESSER): PFT's show mild obstructive ventilatory defect with good response to bronchodilators. I will start her on Symbicort and continue with p.r.n. albuterol inhaler. Obtain IgE level. Abnormal CXR 09/23/2019 Assessment & Plan (10/06/2019 3:22 PM SHAPER AND PRESSER): I will obtain CT scan of the chest with high-resolution for further evaluation of lung parenchyma. Chronic cough 09/23/2019 Assessment & Plan (10/27/2019 1:35 PM SHAPER AND PRESSER): Cough is improved with inhaled bronchodilators which will be continued. Assessment & Plan (10/06/2019 3:22 PM SHAPER AND PRESSER): Obtain IgE level, give her a trial of inhaled corticosteroids. Obtain CT scan of the chest for further evaluation of lung parenchyma. Allergic rhinitis 09/23/2019 Assessment & Plan (01/08/2020 3:54 PM CDT): Continue with Flonase. Assessment & Plan (10/06/2019 3:22 PM SHAPER AND PRESSER): Start her on Flonase. Esophageal reflux 09/23/2019 Shortness of breath Immunizations Immunization Administration Dates Next Due Influenza, Trivalent, High D ose, Split, Preservative Free, Intramuscular 07/22/2019 Moderna Sars-cov-2 Bivalent Vaccine 50 Mcg/0.5 mL (12+ YRS)-Blue/Perez 07/05/2022 Social History Tobacco Use Types Packs/Day Years Used Date Smoking Tobacco: Former Cigarettes 1 29 1 971 - 2000 Smokeless Tobacco: Never Tobacco Cessation:Counseling Given: Not [...] on file Legal Sex Female 11:32 PM SHAPER AND PRESSER Gender Identity Female 12/24/2019 7:05 PM CDT Sexual Orientation Straight 12/24/2019 7: 05 PM CDT Last Filed Vital Signs Vital Sign Reading [...] 12/11/2023 3:05 PM CDT Plan of Treatment Not on file Procedures Procedure Name Priority Date/Time Associated Diagnosis Comments BONE MINERAL DENSITY 06/07/2017 SCREENING MAMMOGRAM Routine 10/13/2014 2 :25 PM SHAPER AND PRESSER from Last 3 Months or Most Recently Relevant to Health Maintenance Results * BONE MINERAL DENSITY (06/07/2017) Anatomical Region Laterality Modality Radiographic Libra ging Narrative 06/07/2017 Ordered by an unspecified provider. Historical Provider MD EUCEDA DXA PROCEDURES Final Result * Screening Mammogram (10/13/2014 2:25 PM SHAPER AND PRESSER) Anatomical Region Laterality Modality Breast N/A Mammography 10/13/2014 2:25 PM SHAPER AND PRESSER Narrative 10/14/2014 8:38 AM SHAPER AND PRESSER MAURA BURGESS M.D. FINAL REPORT ACC# Date Time Exam [id number] Oct 13, 2014 14:25:00 [facility] [id number] Screen Dig Brst Seth Bi EXAMINATION: Mammogram Technique: Bilateral Full Field Screening Mammography was performed with Tomosynthesis. Views obtained: bilateral craniocaudal and bilateral mediolateral oblique. Computer Aided Detection of the 2D images was performed with [employer].3 version 9.3. Mammogram Findings: The present examination has been compared to prior imaging studies performed at [facility] on 03/28/2013, 03/21/2013 and 07/27/2011. There are [...] M.D. FINAL REPORT ACC# Date Time Exam [id number] Oct 13, 2014 14:25:00 [facility] [id number] Screen Dig Brst Seth Bi EXAMINATION: Mammogram Technique: Bilateral Full Field Screening Mammography was performed with Tomosynthesis. Views obtained: bilateral craniocaudal and bilateral mediolateral oblique. Computer Aided Detection of the 2D images was performed with [employer].3 version 9.3. Mammogram Findings: The present examination has been compared to prior imaging studies performed at [facility] on 03/28/2013, 03/21/2013 and 07/27/2011. There are scattered fibroglandular densities. There is no suspicious abnormality in either breast. IMPRESSION: Annual screening mammography is recommended. OVERALL FINAL ASSESSMENT: BI-RADS CATEGORY 1: Negative. Requested By: Dictated By: MAURA BURGESS M.D. on Oct 14 2014 8:38A This document has been electronically signed by: MAURA BURGESS M.D. on Oct 14 2014 8:38A Historical Provider MD EUC[facility] MAMMO PROCEDURES Emma l Result from Last 3 Months or Most Recently Relevant to Health Maintenance Insurance [employer] CHOICE MEDICARE PPO [employer] MED[employer] PPO Care Teams Laundry Bag Punch Operator Relationship Specialty Start Date End Date David Obregon MD [address] [place] [id number] PCP - General Family Medicine 10/18/22
== END 2024-12-31 14:22 | disposition home or self-care (01) ==
PROVIDERS: PCP Physician Assistant Medical; Visit Provider Nurse Practitioner Family
DX: S32.010A Wedge compression fracture of first lumbar vertebra, initial encounter for closed fracture (principal); S32.020A Wedge compression fracture of second lumbar vertebra, initial encounter for closed fracture; S22.060A Wedge compression fracture of T7-T8 vertebra, initial encounter for closed fracture; X58.XXXA Exposure to other specified factors, initial encounter; J84.10 Pulmonary fibrosis, unspecified; J84.89 Other specified interstitial pulmonary diseases; J43.9 Emphysema, unspecified
CPT/HCPCS: 71250

== ENCOUNTER 2024-12-31 14:23 | Outpatient (CLI) | payer MEDICARE, SELFPAY ==
--- NOTE | 2025-01-01 11:07 | WPDSIXMINUTE ---
Six Minute Walk Procedure Procedure Performed Pulmonary Stress Test (6 min walk) Six Minute Walk Six Minute Walk: This is a 6 minute walk test. The test was performed and interpreted in accordance with the 2014 ERS/ATS task force guidelines. Findings: The patient's resting room air oxygen saturation measured by pulse oximetry was 94%, the heart rate was 87 bpm, and the modified Naseem dyspnea score was 0.5. Patient ambulated for 366 meters and oxygen saturation remained 93 to 95%. At the end of the study the heart rate was 111 bpm and the modified Naseem dyspnea score was 0.5. The patient did not qualify for supplemental oxygen at rest or with ambulation. In comparison to 07/31/24, the ambulatory distance is unchanged at 366 m and the levar saturation is unchanged at 93%.
--- NOTE | 2025-01-01 11:10 | WPDPFTINT ---
PFT Procedure Performed PFT Procedure Performed Spirometry with Pre/Post Bronchodilator Plethysmography (Lung Vol) Diffusing Cap (DLCO) Flow Vol Loop PFT Interpretation This is a pulmonary function test with pre and post-bronchodilator spirometry, plethysmography and diffusing capacity. The test was performed and results interpreted in accordance with the 2019 and 2005 ATS/ERS Task Force guidelines respectively using the Global Lung Function Initiative-2012 reference equations. Patient demonstrated good effort and cooperation. Reproducibility criteria were met. The quality of the pre bronchodilator spirometry maneuver was Grade A and post bronchodilator spirometry maneuver was Grade A. Findings: Spirometry: The contour the inspiratory and expiratory flow tracing are normal. The pre bronchodilator FVC is 2.33 L, 88% predicted. The pre bronchodilator FEV1 is 1.63 L, 79% predicted. The pre bronchodilator FEV1: FVC ratio 70%. The post bronchodilator FVC is 2.31 L, representing a 1% decrease. The post bronchodilator FEV1 is 1.68 L, representing a 3% increase. The post bronchodilator FEV1: FVC ratio is 73%. Plethysmography: The total lung capacity is 4.35 L, 89% predicted. The functional residual capacity is 2.05 L, 73% predicted. The residual volume is 2.02 L, 92% predicted. Diffusing capacity: The diffusing capacity unadjusted for hemoglobin and carboxyhemoglobin is 12.7, 65% predicted. The diffusing capacity adjusted for alveolar volume is 3.74, 87% predicted. In comparison to previous pulmonary function testing on 06/16/2024 the post bronchodilator FVC is unchanged from 2.40 L to 2.31 L. The post bronchodilator FEV1 is unchanged from 1.78 L to 1.68 L. The total lung capacity is unchanged from 3.92 L to 4.35 L. The functional residual capacity is unchanged from 2.08 L to 2.05 L. The residual volume has increased from 1.69 L to 2.02 L. The diffusing capacity unadjusted for hemoglobin and carboxyhemoglobin is unchanged from 13.7 to 12.7. The diffusing capacity adjusted for alveolar volume is unchanged from 4.28 to 3.74. Impression: The spirometry is normal without evidence of an obstructive abnormality. There is no significant improvement after inhaling a single dose of albuterol. The lung volumes are normal. The diffusing capacity unadjusted for hemoglobin and carboxyhemoglobin is mildly decreased and normalizes when adjusted for alveolar volume. In comparison to previous pulmonary function testing on 06/16/2024 there has been a greater than anticipated time dependent increase in the residual volume with no significant change in the FVC, FEV1, total lung capacity, functional residual capacity or diffusing capacity. Clinical correlation is recommended.
== END 2024-12-31 14:24 | disposition home or self-care (01) ==
PROVIDERS: PCP Physician Assistant Medical; Visit Provider Internal Medicine Pulmonary Disease
DX: J84.10 Pulmonary fibrosis, unspecified (principal)
CPT/HCPCS: 94060; 94618; 94726; 94729

== ENCOUNTER 2025-03-25 14:45 | Outpatient (RCR) | payer MEDICARE, SELFPAY ==
--- NOTE | 2025-01-02 17:46 | PTOPEVAL1 ---
Assessment and note entered by Kristan Blackburn, PT Evaluation Information Assessment Status Evaluation Diagnosis R26.81 ICD-10 Condition Codes (PT) Repeated falls R29.6,Abnormalities of gait and mobility R26.9,Weakness R53.1,Dizziness and Giddiness R42 Onset chronic Subjective Information Pt reports h/o polio, scoliosis, osteoporosis, chronic back and leg pains, states she has ongoing chronic unsteadiness on her feet even when she was younger. Denies any spinning sensation or dizziness with head movements and changing positions in bed; however she did mention occasional light-headedness when first getting up in the morning. Reports had major fall when she was on a vacation at [place], missed a step and fell backwards, hitting her head on marble talha that resulted to brain bleed which took a while to recover. After that incident, states have fallen 3x in the span of 6 months due to LOB. states she did not have as many falls before the major accident. 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 Reported Pain Level Pain Score 0: Self Report Assessment PT Clinical Summary Pt presents to therapy for evaluation and treatment who c/o repeated falls, balance issues and difficulty walking. Reports had random episodes of light-headedness and dizziness in the past but is not occurring currently. Demos postural dysfunction with significant PMHx of scoliosis, osteoporosis and residual weakness from childhood exposure to polio virus. Also presents with instability and weakness to bilateral hips and glute muscle groups, decreased quad control, core and trunk weakness. Pt will benefit from skilled PT to improve overall strength, mobility, endurance and balance to reduce risk for falls and improve safety in performing ADLs, IADLS, household and community ambulation without AD. Plan of Care Interventions Check Out for Orthotic/Prosthetic,Gait Training, Manual Therapy,Neuro Re-education,Patient/ Caregiver Education,Therapeutic Activities, Therapeutic Exercise,Ultrasound Other Interventions [facility]ero[facility] PT Services Indicated Yes Treatment Frequency and 1-2x/wk x 10 visits Duration These treatments will address the objective and functional deficits as defined above. The patient will be advanced safely and appropriately in order for the patient to progress towards his/her prior level of function. Additional exercises will be introduced and as well as a comprehensive home exercise program upon discharge, if needed, ?to ensure carryover of functional gains achieved in the clinic. This treatment plan has been reviewed and agreement upon by the patient.
--- NOTE | 2025-03-25 16:29 | PTOPDC ---
Assessment and note entered by Laury Pleitez, PT Evaluation Information Assessment Status Discharge Diagnosis R26.81 ICD-10 Condition Codes (PT) Repeated falls R29.6,Abnormalities of gait and mobility R26.9,Weakness R53.1,Dizziness and Giddiness R42 Onset chronic Subjective Information Pt reports since starting therapy no more falls. Pt reports the other day was laying with her head hanging off the edge and was dizzy, had to sit back up. Self-perceived improvement 80-90% Reports starting her inserts again has greatly improved her issues. Is being more aware and careful with her motions. States she is very happy with her progress Reported Pain Level Pain Score 0: Self Report Assessment PT Clinical Summary Pt has attended 7 therapy sessions sporadically over the last two months. She feels overall she is 80-90% improved in her gait and balance. She shows low fall risk on the Tinetti scale, is independent in her home exercises, and demonstrate superb 2 minute ambulation score of 450 ft. She does have difficulty with single leg stance without hand held assist however she is above average for her age group. Pt is happy with her progress, has been educated in continuing improvement independently through options like Rafael [facility], Yoga, or Pilates. Thus patient is being discharged for completion of plan of care. Plan of Care PT Services Indicated No
== END 2025-03-26 08:20 | disposition home or self-care (01) ==
LOC: ANHHIPT 14:45
PROVIDERS: PCP Physician Assistant Medical; Visit Provider Physician Assistant Medical
DX: R26.81 Unsteadiness on feet (principal)
CPT/HCPCS: 97110; 97112; 97161; 97530; 97750

== ENCOUNTER 2025-07-20 13:03 | Outpatient (CLI) | payer MEDICARE, SELFPAY ==
--- OUTSIDE RECORDS SUMMARY | 2025-07-20 14:22 | XMS_ITS | Encounter Summary ---
Author Organization [facility] Address [address] [place] [address] Phone Care Team Providers Care Optical Coating Technician Name Role Phone David Obregon MD Primary Care Provider [phone] Dana Jim Primary Care Provider [phone]- [phone] Encounter Details Date Type Department Care Team (Late st Contact Info) Description 04/16/2025 Orders Only [facility] Scanning, Provider Social History Tobacco Use Types Packs/Day Years Used Date Smoking Tobacco: Former Cigarettes 1 29 1 971 - 2000 Smokeless Tobacco: Never Alcohol Use Standard Drinks/Week Comments Yes 0 (1 standard drink = 0.6 oz pur e alcohol) PHQ-2 Answer Date Recorded PHQ-2 Total Score (If total score is 3 or more points, staff should administer the PHQ-9) 4 08/03/2021 Comments Unknown Sex and Gender Information Value Date Recorded Sex Assigned at Not on file Legal Sex Female 11:32 PM SPORTS RECRUITER Gender Identity Female 12/24/2019 7:05 PM CDT Sexual Orientation Straight 12/24/2019 7: 05 PM CDT documented as of this encounter Plan of Treatment Not on file documented as of this encounter Procedures Procedure Name Priority Date/Time Associated Diagnosis Comments SCAN - RADIOLOGY/IMAGING 04/16/2025 documented in this encounter Results * SCAN - RADIOLOGY/IMAGING (04/16/2025) Anatomical Region Laterality Modality Other us Provider Scanning Final Result documented in this encounter Visit Diagnoses Not on filedocumented in this encounter Care Teams Optical Coating Technician Relationship Specialty Start Date End Date David Obregon MD [address] [place] [id number] PCP - General Family Medicine 10/18/22 05/20/25 Dana Jim PA [address] [place] [id number] PCP - General Physician Cyanide Pot Hardener 05/21/25 documented as of this encounter
--- OUTSIDE RECORDS SUMMARY | 2025-07-20 14:22 | XMS_ITS | Clinical Summary ---
Author Organization [facility] Address [address] [place] [address] Care Team Providers Care Basting Cleaner Name Role Phone Dana Jim Primary Care Provider [phone]- [phone] Allergies Active Allergy Reactions Criticality Noted Date [...] PUFFS TWICE DAILY 32.1 g 4 Active bimatoprost (LUMIGAN) 0.01 % ophthalmic drops 1 drop nightly Activ e dextroamphetami ne-amphetamine (AdderalL) 20 mg tablet 1 tablet (20 mg total) Active DULoxetine DR (CYMBALTA) 60 mg capsule Take 1 capsule (60 mg total) by mouth daily Active famotidine (PEPCID) 40 mg tablet Take 1 tablet (40 mg total) by mouth daily Active 81/iron/folic/d ocusat (CITRANATAL, DUAL-IRON, ORAL) Take by mouth Active predniSONE (DELTASONE) 5 mg tablet Take by mouth Active rOPINIRole (REQUIP) 4 mg tablet Take 1 tablet (4 mg total) by mouth nightly Active trazodone HCl (TRAZODONE ORAL) Take by mouth Active Active Problems Problem Noted Date Diagnosed Date Primary hypertension 10/16/2022 Thyroid nodule 08/03/2021 Assessment & Plan (08/03/2021 5:49 PM CRANE HOIST OR LIFT OPERATOR): I looked Mrs. Herrera 's thyroid [...] progression. Assessment & Plan (10/27/2019 1:35 PM CRANE HOIST OR LIFT OPERATOR): Patient CRP and IgE level are normal. He ESR is elevated at 48. CT scan of the chest with high-resolution reviewed. I will obtain 6 rheumatoid factor, LORIE panel, Anca panel and CURTIS panel. SOB (shortness of breath) 10/23/2019 Assessment & Plan (10/27/2019 1:34 PM CRANE HOIST OR LIFT OPERATOR): Continue with bronchodilators. I will obtain 2D echocardiogram for further evaluation of dyspnea. Mild intermittent asthma 10/23/2019 Assessment & Plan (01/08/2020 3:52 PM CDT): Continue with Symbicort and p.r.n. albuterol inhaler. Assessment & Plan (10/27/2019 1:34 PM CRANE HOIST OR LIFT OPERATOR): Continue with Symbicort and p.r.n. albuterol inhaler. Simple chronic bronchitis 09/23/2019 Assessment & Plan (10/06/2019 3:21 PM CRANE HOIST OR LIFT OPERATOR): PFT's show mild obstructive ventilatory defect with good response to bronchodilators. I will start her on Symbicort and continue with p.r.n. albuterol inhaler. Obtain IgE level. Abnormal CXR 09/23/2019 Assessment & Plan (10/06/2019 3:22 PM CRANE HOIST OR LIFT OPERATOR): I will obtain CT scan of the chest with high-resolution for further evaluation of lung parenchyma. Chronic cough 09/23/2019 Assessment & Plan (10/27/2019 1:35 PM CRANE HOIST OR LIFT OPERATOR): Cough is improved with inhaled bronchodilators which will be continued. Assessment & Plan (10/06/2019 3:22 PM CRANE HOIST OR LIFT OPERATOR): Obtain IgE level, give her a trial of inhaled corticosteroids. Obtain CT scan of the chest for further evaluation of lung parenchyma. Allergic rhinitis 09/23/2019 Assessment & Plan (01/08/2020 3:54 PM CDT): Continue with Flonase. Assessment & Plan (10/06/2019 3:22 PM CRANE HOIST OR LIFT OPERATOR): Start her on Flonase. Esophageal reflux 09/23/2019 Shortness of breath Encounters Date Type Department Care Team Description 07/13/[address] Medical Office Building [address] [place] [phone] Rachael Hall MD 05/22/2025 Orders Only [address] Office [address] [place] [id number] Rachael Hall MD 05/21/2025 12:40 PM CDT Office Visit [address] [place] [phone] Rachael Hall MD Osteoporosis, unspecified osteoporosis type, unspecified pathological fracture presence (Primary Dx) 05/21/2025 12:10 PM CDT Clinical Support [address] [place] [phone] Osteoporosis, unspecified osteoporosis type, unspecified pathological fracture presence (Primary Dx); Age-related osteoporosis without current pathological fracture 05/21/[address] Medical Office Building [address] [place] [phone] Rachael Hall MD 05/20/2025 Orders Only [facility] [address] [facility] 13th [place] [address] [place] [address] Rachael Hall MD Age-related osteoporosis without current pathological fracture (Primary Dx) from Last 3 Months Immunizations Immunization Administration Dates Next Due Influenza, Trivalent, High D ose, Split, Preservative Free, Intramuscular 07/22/2019 Moderna Sars-cov-2 Bivalent Vaccine 50 Mcg/0.5 mL (12+ YRS)-Blue/Perez 07/05/2022 Surgical History Surgery Date Site/Laterality Comments OTHER SURGICAL HISTORY hysterectomy for stage 1 cervical cancer: nml paps since OTHER SURGICAL HISTORY breast biopsy X 2: benign OTHER SURGICAL HISTORY LICHEN SCLEROSUS: Q6 MO VULVAR EXAMS, CLOBETASOL MD ESOPHAGOGASTRODUODENOSCOP Y TRANSORAL DIAGNOSTIC Diagnostic Esophagogastroduodenoscopy - (Added by TW Conv) MD BX BREAST NEEDLE CORE W/O IMAGING GUIDANCE SPX Biopsy Breast Percutaneous Needle Core - (Added by TW Conv) CATARACT EXTRACTION, BILATERAL HYSTERECTOMY SINUS SURGERY TOE SURGERY 08/13/20 23 Left Great toe nail removed. Medical History [...] diabetes mellitus - (Added by TW Conv) Hip fracture Mother Depression Other 1 Family history of Depression; [...] on file Legal Sex Female 11:32 PM CRANE HOIST OR LIFT OPERATOR Gender Identity Female 12/24/2019 7:05 PM [...] CDT Inhaled Oxygen Concentration - - Weight 72.8 kg (160 lb 9.6 oz) 05/21/2025 12:39 PM CDT Height 158.1 cm (5' 2.25) 05/21/2025 12:39 PM C DT Body Mass Index 29.14 05/21/2025 12:39 PM CDT Plan of Treatment Health Maintenance Due Date Last Done Comments Colon Cancer Screening-Colonoscopy 1950 Fall Risk Assessment 1950 Hepatitis C Screening 1950 Hepatitis B Screening 1969 Zoster Vaccine (1 of 2) 2001 Well Visit 65+ 2016 Depression Screening 08/03/2022 08/03/2021 Covid-19 Vaccine ( - 2024-2 6 season) 2025 10/23/2023, 07/05/2022, 08/01/2021, Additional history exists Influenza Vaccine (#1) 2025 , 07/25/2023, 07/05/2022, Additional history exists Breast Cancer Screening-Mammogram 04/21/2026 04/21/2025, 04/21/2025, 03/29/2023, Additional history exists Osteoporosis Screening-Bone Density Scan 05/21/2027 05/21/2025, 04/16/2025, 12/11/2022, Additional history exists DTaP/Tdap/Td Vaccine (2 - Td or Tdap) 06/12/2031 06/12/2021 Pneumococcal vaccine 65+ Completed 09/14/2024, 02/16 Procedures Procedure Name Priority Date/Time Associated Diagnosis Comments DEXA TBS AXIAL SKELETON BONE DENSITY 1 OR MORE SITES Schedule Routine, Read Routine (OP Routine) 05/21/2025 12:39 PM CDT Age-related osteoporosis without current pathological fracture SCAN - LABS Routine 05/20/2025 2:19 PM CDT SCREENING MAMMOGRAM Routine 10/13/2014 2:25 PM CRANE HOIST OR LIFT OPERATOR from Last 3 Months or Most Recently Relevant to Health Maintenance Results * Dexa TBS Axial Skeleton Bone Density 1 or more sites (05/21/2025 12:39 PM CDT) Anatomical Region Laterality Modality Wrist, Body N/A Radiographic Libra ging Narrative 05/21/2025 3:37 PM CDT Patient Name: Elaine Herrera Date of : 1950 Date of scan: 05/21/2025 Bone mineral density was performed on a Hologic Discovery Densitometer. Based on machine cross-calibration and precision studies the least significant changes of this densitometer is 0.024 g/cm2 at the spine, 0.020 g/cm2 at the total proximal femur, and 0.014g/cm2 at the forearm. HISTORY: This is a 74 y.o. postmenopausal female with a history of osteoporosis and vitamin D deficiency. She reports that she quit smoking about 25 years ago. Her smoking use included cigarettes. She started smoking about 54 years ago. She has a 29 pack-year smoking history. She has never used smokeless tobacco. Currently on treatment with zoledronic acid (Reclast) and diuretics, previously treated with ibandronate (Boniva), teriparatide (Forteo), and denosumab (Prolia), and current complaint of leg pain. INDICATIONS: Menopause status, treatment monitoring, history of prior vertebral fracture, vitamin D deficiency, and history of osteoporosis. FINDINGS: BONE MINERAL DENSITY OF THE LUMBAR SPINE Bone Mineral Density (BMD) of the lumbar spine was measured from L2-L4 and the average density was calculated to be 0.786 gm/cm2. This corresponds to a T-score (standard deviations from the mean of young adults) of -2.7. When compared to the previous study of 06/07/2017 there has been a 0.110 gm/cm (16.3%) increase in bone density that is considered significant. BONE MINERAL DENSITY OF THE PROXIMAL FEMUR Bone Mineral Density (BMD) of the left hip total was found to be 0.658 gm/cm2. This corresponds to a T-score standard deviations from the mean of young adults of -2.3. Femoral neck is 0.562 gm/cm2 with a T-score (standard deviations from the mean of young adults) of -2.6. When compared to the previous study of 06/07/2017 there has been a -0.028 gm/cm (-4.1%) decrease in bone density that is considered significant. SUMMARY: Bone mineral density shows evidence of osteoporosis and marked increase risk of fracture. There is a significant increase noted in the spine and a significant decrease noted in the hip since the previous exam. L1 excluded from bone mineral density analysis of the lumbar spine due to history of compression deformity. Please note that L1 was removed from previous spine scan to provide accurate comparison. The lumbar spine Trabecular Bone Score is 1.314 which suggests partially degraded bone microarchitecture compared to the general population. Final decisions regarding diagnostic or therapeutic recommendations should include BMD, TBS, additional clinical risk factors as well the clinical context of the patient. Please see attached TBS results for further details. ADDITIONAL COMMENTS: Postmenopausal Women and Men Over 50: Diagnostic criteria: Osteoporosis: BMD at or below -2.5 T-score; Osteopenia (low bone mass): BMD between -1.0 and -2.5 T-score. If the patient has a history of a fragility fracture, a fracture that occurred with trauma equivalent to a fall from a standing position or less, then the diagnosis is osteoporosis regardless of bone density. The history and data sections of the bone mineral density scan were prepared by Geri Anand) BILL who is accredited by the International Society of Clinical Densitometry. The overall patient assessment and scan interpretation were performed by Rachael Hall M.D. who is certified by the International Society of Clinical Densitometry. [id number] Rachael Hall MD IMG DXA PROCEDURES Final Result * SCAN - LABS (05/20/2025 2:19 PM CDT) Rachael Juarez al Result EXTERNAL LAB from Last 3 Months Insurance [employer] CHO[employer] MEDICARE PPO [employer] CHO[employer] MEDICARE PPO [employer] CHOICE MEDICARE PPO Care Teams Basting Cleaner Relationship Specialty Start Date End Date Dana Jim PA [address] [place] [address] [phone] PCP - General Physician Fashion Supervisor 05/21/25
--- OUTSIDE RECORDS SUMMARY | 2025-07-20 14:22 | XMS_ITS | Encounter Summary ---
Author Organization [facility] Address [address] [place] [address] Phone Care Team Providers Care Collar Runner Name Role Phone David Obregon MD Primary Care Provider [phone] [phone] Dana Jim Primary Care Provider [phone]- [phone] Encounter Details Date Type Department Care Team (Late st Contact Info) Description 12/11/2022 Orders Only [facility] Scanning, Provider [...] on file Legal Sex Female 11:32 PM SPOOLER Gender Identity Female 12/24/2019 7:05 PM CDT Sexual Orientation Straight 12/24/2019 7: 05 PM CDT documented as of this encounter Plan of Treatment Not on file documented as of this encounter Procedures Procedure Name Priority Date/Time Associated Diagnosis Comments SCAN - RADIOLOGY/IMAGING 12/11/2022 documented in this encounter Results * SCAN - RADIOLOGY/IMAGING (12/11/2022) Anatomical Region Laterality Modality Other us Provider Scanning Final Result documented in this encounter Visit Diagnoses Not on filedocumented in this encounter Care Teams Collar Runner Relationship Specialty Start Date End Date David Obregon MD [address] [place] [phone] PCP - General Family Medicine 10/18/22 05/20/25 Dana Jim PA [address] [place] [phone] PCP - General Physician Cotton Ball Bagger 05/21/25 documented as of this encounter
--- OUTSIDE RECORDS SUMMARY | 2025-07-20 14:22 | XMS_ITS | Clinical Summary ---
Author Organization [facility] Address [address] [place] [address] Care Team Providers Care Charge Aide Name Role Phone Issa Hawkins MD Unavailable [phone] Thang Mackey Primary Care Provider [phone] Allergies Active Allergy Reactions Criticality Noted Date [...] COVID-19 08/28/2022 S/P kyphoplasty 09/05/2021 Osteoporosis 10/30/2019 Encounters Date Type Department Care Team Description 07/03/2025 2:00 PM CDT - 07/03/2025 11:59 PM CDT Hospital Encounter [facility] [address] [place] [address] Thang Mackey PA Discharge Disposition: Home or Self Care (Routine Discharge) 07/03/2025 Travel 06/23/2025 11:00 AM CDT - 06/23/2025 11:56 AM CDT Hospital Encounter [facility] [address] [place] [address] Rachael Hall MD Discharge Disposition: Home or Self Care (Routine Discharge) 06/23/2025 Orders Only [facility] [address] [place] [address] Thang Mackey PA 06/23/2025 Orders Only [facility] [address] [place] [address] Rachael Hall MD 06/23/2025 Travel 06/08/2025 5:00 PM CDT - 06/08/2025 11:59 PM CDT Hospital Encounter [facility] [address] [place] [address] Earlene Vilchis MD Discharge Disposition: Home or Self Care (Routine Discharge) 06/08/2025 Travel 05/20/2025 9:01 AM CDT - 05/20/2025 11:59 PM CDT Hospital Encounter [facility] [address] [place] [address] Earlene Vilchis MD Discharge Disposition: Home or Self Care (Routine Discharge) 05/20/2025 8:58 AM CDT - 05/20/2025 9:00 AM CDT Hospital Encounter [facility] [address] [place] [address] Thang Mackey PA Discharge Disposition: Home or Self Care (Routine Discharge) 05/19/[address] [facility] [address] [place] [address] Thang Mackey PA 05/19/2025 Orders Only [facility] [address] [place] [address] Earlene Vilchis MD 05/19/2025 Travel 05/18/2025 5:50 PM CDT - 05/18/2025 11:59 PM CDT Hospital En[facility] [address] [address] Thang Mackey PA Discharge Disposition: Home or Self Care (Routine Discharge) 05/18/2025 Orders Only [facility] [address] [place] [address] Thang Mackey PA 05/01/2025 Orders Only [facility] [address] [place] [address] Casey Beckman MD 04/30/2025 Therapy Plan [facility] [address] [place], [place] [address] [address] Earlene Vilchis MD 04/21/2025 12:17 PM CDT - 04/21/2025 11:59 PM CDT Hospital Encounter [facility] [address] [place] [address] [address] Thang Mackey PA Discharge Disposition: Home or Self Care (Routine Discharge) 04/21/2025 Travel from Last 3 Months Immunizations Immunization Administration Dates Next Due Tdap [...] Sex Assigned at Female 09/30/2024 12:05 PM EMAIL SPECIALIST Legal Sex Female 8:31 PM CDT Gender Identity Female 09/07/2021 7:24 AM EMAIL SPECIALIST Sexual Orientation Straight 09/07/2021 7: 24 AM EMAIL SPECIALIST Last Filed Vital Signs Vital Sign Reading Time Taken Comments Blood Pressure 128/78 07/22/2024 9:30 AM EMAIL SPECIALIST Pulse 92 07/22/2024 9:30 AM EMAIL SPECIALIST Temperature 36.6 C (97.8 F) 07/22/2024 9:30 AM EMAIL SPECIALIST Respiratory Rate 18 07/22/2024 9:30 AM EMAIL SPECIALIST Oxygen Saturation 95% 11/10/2023 7:43 AM EMAIL SPECIALIST Inhaled Oxygen Concentration - - Weight 68.5 kg (151 lb) 07/22/2024 9:30 AM EMAIL SPECIALIST Height 160 cm (5' 3) 11/10/2023 7:43 AM EMAIL SPECIALIST Body Mass Index 26.75 11/10/2023 7:43 AM EMAIL SPECIALIST Plan of Treatment Health Maintenance Due Date Last Done Comments Colorectal Cancer Screening Colonoscopy (10 Years) 1950 Hepatitis C 1969 Zoster Vaccines (1 of 2) 2001 Annual Medicare Wellness Visit 2016 PHQ-2 (Physician [place]) 09/17/2024 COVID-19 Vaccine ( season) 2025 10/23/2023, 07/05/2022, 08/01/2021, Additional history exists Influenza Adult (#1) 2025 09/14/2024, 08/01/2021, 06/03/2020, Additional history exists Mammogram Screening 04/21/2027 04/21/2025, 03/29/2023, 09/19/2021, Additional history exists DTaP, Tdap and Td Vaccines (2 - Td or Tdap) 06/12/2031 06/12/2021 Colorectal Cancer Screening FIT/FOBT (1 Year) Discontinued 06/06/2021 RSV Immunization or 60+ Years Completed 07/25/2023 Pneumococcal Vaccine: 50+ Years Completed 09/14/2024, 03/13/2015 Dexa Scan (General) Completed 05/21/2025, 04/16/2025, 12/11/2022, Additional history exists Hepatitis A Vaccines Aged Out No long er eligible based on patient's age to complete this topic Meningococcal B Vaccine Aged Out No l onger eligible based on patient's age to complete this topic Meningococcal Vaccine Aged Out No cory rubens eligible based on patient's age to complete this topic RSV Immunizations Under 20 Months Aged Out No longer eligible based on patient's age to complete this topic Medical Devices Implanted Type Area Picker Box Operator Device Identifier Shelf Expiration Date Model / Serial / Lot Vertaplex Hv Implanted:Qt y: 1 on 08/29/2021 by Gentry Broderick MD at [facility] [employer] Cement Implant N/A: Thoracic CAL SPINE - DIV CAL BELÉN [id number] 10/17/2022 / / [id number] Procedures Procedure Name Priority Date/Time Associated Diagnosis Comments FERRITIN Routine 07/03/2025 2:19 PM CDT Iron deficiency anemia, unspecified XR LUMB SPINE 3V Routine 06/23/2025 11:2 8 AM CDT Osteoporosis, unspecified US THYROID Routine 06/08/2025 5:42 PM CDT Nontoxic single thyroid nodule PTH - INTACT Routine 05/20/2025 9:05 AM CDT Senile osteoporosis PROTEIN, ELECTROPHORESIS Routine 05/20/2025 9:05 AM CDT Senile osteoporosis OSTEOCALCIN, N-MID Routine 05/20/2025 9: 05 AM CDT Senile osteoporosis IMMUNOFIXATION Routine 05/20/2025 9:05 AM CDT Senile osteoporosis COMPREHENSIVE METABOLIC PANEL Routine 05/20/2025 9:05 AM CDT Senile osteoporosis C-TELOPEPTIDE Routine 05/20/2025 9:05 AM CDT Senile osteoporosis HEMOGLOBIN, GLYCOSYLATED Routine 05/20/2025 9:05 AM CDT Impaired glucose tolerance test Macrocytic anemia Senile osteoporosis Vitamin D deficiency Other abnormal glucose Iron deficiency anemia, unspecified FERRITIN Routine 05/20/2025 9:05 AM CDT Impaired glucose tolerance test Macrocytic anemia Senile osteoporosis Vitamin D deficiency Other abnormal glucose Iron deficiency anemia, unspecified VITAMIN D, 25 [place] Routine 05/20/2025 9:05 AM CDT Impaired glucose tolerance test Macrocytic anemia Senile osteoporosis Vitamin D deficiency Other abnormal glucose Iron deficiency anemia, unspecified CORTISOL FREE URINE 24 HR Routine 05/18/2025 5:30 AM CDT Impaired glucose tolerance test Macrocytic anemia Senile osteoporosis Vitamin D deficiency Other abnormal glucose Iron deficiency anemia, unspecified CALCIUM URINE 24 HR Routine 05/18/2025 5 :30 AM CDT Impaired glucose tolerance test Macrocytic anemia Senile osteoporosis Vitamin D deficiency Other abnormal glucose Iron deficiency anemia, unspecified PROTEIN ELECTROPHORESIS URINE 24 HR Routine 05/18/2025 5:30 AM CDT Impaired glucose tolerance test Macrocytic anemia Senile osteoporosis Vitamin D deficiency Other abnormal glucose Iron deficiency anemia, unspecified CREATININE URINE 24 HR Routine 5:30 AM CDT Impaired glucose tolerance test Macrocytic anemia MG SCREENING W KARY LETI DIGI Routine 04/21/2025 12:55 PM CDT Screening mammogram for breast cancer BONE DENSITY/DEXA Routine 04/16/2025 3:4 6 PM CDT Age-related osteoporosis without current pathological fracture OCCULT BLOOD, FECES Routine 06/06/2021 9 :00 AM CDT Diarrhea from Last 3 Months or Most Recently Relevant to Health Maintenance Results * FERRITIN (07/03/2025 2:19 PM CDT) Only the most recent of2 resultswithin the time period is included. FERRITIN 27.0 8.0 - 388.0 NG/ML 07/03/2025 3:16 PM CDT [facility] 07/03/2025 2:19 PM CDT Thang SHER LABORATORY Final Result [facility] [address] [place] [address], * XR LUMB SPINE 3V (06/23/2025 11:28 AM CDT) Anatomical Region Laterality Modality Spine Radiographic Libra ging 06/23/2025 11:3 7 AM CDT Impressions 06/23/2025 11:40 AM CDT IMPRESSION: 1. No acute abnormality identified. 2. Interval development of old appearing 25% superior endplate compression deformity of L2. 3. Stable old 30% superior endplate compression deformity of L1. 4. Other findings as above. Referred By: Interpreted By: Rasta Jordan MD, 06/23/2025 11:37 AM Narrative 06/23/2025 11:[address] [facility] [address] [place] [address] IMAGING STUDIES: XR LUMB SPINE 3V DATE: 06/23/2025 11:27 AM COMPARISON: No comparisons.. Correlation with CT of the lumbar spine of 12/06/2023 CLINICAL HISTORY: OSTEOPOROSIS. History of multiple fractures in the past FINDINGS: No evidence of acute fracture or dislocation. Osteopenia limits exam. Interval development of old appearing 25% superior endplate compression deformity of L2. No retropulsion. Stable old 30% superior endplate compression deformity of L1. No retropulsion. Other vertebral body heights are well-maintained. Moderate multilevel endplate and facet joint degenerative change. No spondylolisthesis. No paraspinal lesions. Mild degenerative change in both sacroiliac joints. 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 Procedure Note Rasta Jordan MD - 06/23/2025 [facility] [address] [place] [address] IMAGING STUDIES: XR LUMB SPINE 3V DATE: 06/23/2025 11:27 AM COMPARISON: No comparisons.. Correlation with CT of the lumbar spine of12/06/2023 CLINICAL HISTORY: OSTEOPOROSIS. History of multiple fractures in thepast FINDINGS: No evidence of acute fracture or dislocation. Osteopenia limits exam. Interval development of old appearing 25% superior endplate compressiondeformity of L2. No retropulsion. Stable old 30% superior endplate compression deformity of L1. Noretropulsion. Other vertebral body heights are well-maintained. Moderate multilevelendplate and facet joint degenerative change. No spondylolisthesis. No paraspinal lesions. Mild degenerative change in both sacroiliac joints. Stable mild tomoderate rotatory dextroconvex curvature of mid lumbar spine. IMPRESSION: 1. No acute abnormality identified. 2. Interval development of old appearing 25% superior endplatecompression deformity of L2. 3. Stable old 30% superior endplate compression deformity of L1. 4. Other findings as above. Referred By: Interpreted By: Rasta Jordan MD, 06/23/2025 11:37 AM us Provider Non-Staff GENERAL IMAGING Final Result * US THYROID (06/08/2025 5:42 PM CDT) Anatomical Region Laterality Modality Neck Ultrasound 06/10/2025 8:27 AM CDT Impressions 06/10/2025 8:30 AM CDT IMPRESSION: TIRADS assessment of thyroid nodules: Nodule 1, right mid : ACR TI-RADS TR3. Size: 0.5 cm. New. Recommend: No further follow-up Previously seen left inferior thyroid nodule not visualized on today's study. Other non-TIRADS findings: None ----- -- ACR TI-RADS recommendations TR5 (?7 points) - FNA if ? 1cm, follow-up annually if ? 0.5 cm TR4 (4-6 points) - FNA if ? 1.5 cm, follow-up at 1, 2, 3, and 5 years if ? 1.0 cm TR3 (3 points)- FNA if ? 2.5cm, follow-up at 1, 3, and 5 years if ? 1.5 cm TR2 (2 points) & TR1 (0 points) - No FNA or follow-up * ACR TI-RADS recommends that no more than two nodules with the highest ACR TI- RADS total point should be biopsied and no more than four nodules should be followed. TI-RADS recommendations are based on TI-RADS level. Management decisions such as whether to perform FNA and whether to follow up a nodule may differ from the TI- RADS recommendation based on clinician judgement, patient preference, risk factors for thyroid cancer, comorbidities, life expectancy and other considerations. Ordered By: EARLENE VILCHIS Interpreted By: Milan Carvalho MD, 06/10/2025 8:27 AM Narrative 06/10/2025 8:[address] [facility] [address] [facility] [place] [address] Thyroid Ultrasound Indication: Nontoxic single thyroid nodule Comparison: Thyroid ultrasound 11/29/2022. Technique: Perez-scale and color Doppler images of the thyroid gland were obtained. Findings: RIGHT LOBE: The right thyroid lobe is homogenous in background echotexture. The right lobe measures 1.9 x 3.8 x 1.7 cm. Number of nodules which are TI-RADS scored for the right lobe: 1 LEFT LOBE: The left thyroid lobe is homogenous in background echotexture. The left lobe measures 1.6 x 4.5 x 1.7 cm. Number of nodules which are TI-RADS scored for the left lobe: 0 ISTHMUS: The isthmus measures 0.4 cm in thickness. Number of nodules which are TI-RADS scored for the isthmus: 0 Lymph nodes: No suspicious cervical adenopathy. Nodule 1: - Size: 0.5 x 0.3 x 0.4 cm, new. - Location: right mid thyroid. - Composition: solid or almost completely solid (2) - Echogenicity: hyperechoic (1) - Shape: [id number] (0) - Margins: smooth (0) - Echogenic foci: none (0) ACR TI-RADS total points: 3 ACR TI-RADS category: TR3 Previously seen left inferior thyroid nodule is not visualized on today's study. Procedure Note Milan Carvalho MD - 06/10/2025 [facility] [address] [facility]. [place] [id number] Thyroid Ultrasound Indication: Nontoxic single thyroid nodule Comparison: Thyroid ultrasound 11/29/2022. Technique: Perez-scale and color Doppler images of the thyroid gland wereobtained. Findings: RIGHT LOBE: The right thyroid lobe is homogenous in background echotexture. The rightlobe measures 1.9 x 3.8 x 1.7 cm. Number of nodules which are TI-RADSscored for the right lobe: 1 LEFT LOBE: The left thyroid lobe is homogenous in background echotexture. The leftlobe measures 1.6 x 4.5 x 1.7 cm. Number of nodules which are TI-RADSscored for the left lobe: 0 ISTHMUS: The isthmus measures 0.4 cm in thickness. Number of nodules which areTI-RADS scored for the isthmus: 0 Lymph nodes: No suspicious cervical adenopathy. Nodule 1: - Size: 0.5 x 0.3 x 0.4 cm, new. - Location: right mid thyroid. - Composition: solid or almost completely solid (2) - Echogenicity: hyperechoic (1) - Shape: [id number] (0) - Margins: smooth (0) - Echogenic foci: none (0) ACR TI-RADS total points: 3 ACR TI-RADS category: TR3 Previously seen left inferior thyroid nodule is not visualized on today'sstudy. IMPRESSION: TIRADS assessment of thyroid nodules: Nodule 1, right mid : ACR TI-RADS TR3. Size: 0.5 cm. New. Recommend:No further follow-up Previously seen left inferior thyroid nodule not visualized on today'sstudy. Other non-TIRADS findings: None ----- -- ACR TI-RADS recommendations TR5 (?7 points) - FNA if ? 1cm, follow-up annually if ? 0.5 cm TR4 (4-6 points) - FNA if ? 1.5 cm, follow-up at 1, 2, 3, and 5 years if ?1.0 cm TR3 (3 points)- FNA if ? 2.5cm, follow-up at 1, 3, and 5 years if ? 1.5 cm TR2 (2 points) & TR1 (0 points) - No FNA or follow-up * ACR TI-RADS recommends that no more than two nodules with the highestACR TI- RADS total point should be biopsied and no more than four nodulesshould be followed. TI-RADS recommendations are based on TI-RADS level. Managementdecisions such as whether to perform FNA and whether to follow up a nodulemay differ from the TI- RADS recommendation based on clinician judgement,patient preference, risk factors for thyroid cancer, comorbidities, lifeexpectancy and other considerations. Ordered By: EARLENE VILCHIS Interpreted By: Milan Cravalho MD, 06/10/2025 8:27 AM Earlene Vilchis MD ULTRASOUND Final Result * OSTEOCALCIN, N-MID (05/20/2025 9:05 AM CDT) OSTEOCALCIN N-MID 14 8 - 32 ng/mL 05/23/2025 8:25 PM CDT [employer] [facility] CRU[facility] Comment: For additional information, please refer to https://[employer]faq/XKK161 (This link is being provided for informational/ educational purposes only.) Test Performed by [employer] Kate, [employer] [place], [address] [place] [address] Nikolai Mcgowan M.D., Ph.D., Director of Laboratories , [facility] [id number] 05/20/2025 9:05 AM CDT Earlene Vilchis MD LABORATORY Final Result [facility] [facility] [address] , * C-TELOPEPTIDE (05/20/2025 9:05 AM CDT) C-TELOPEPTIDE (CTX) 327 see note pg/mL 05/23/2025 8:26 PM CDT [employer] [facility] CRU[facility] Comment: Unable to flag abnormal result(s), please refer to reference range(s) below: Reference Range, Females: <5 years: Not Established 5-9 years: 574-1849 pg/mL 10-13 years: 519-2415 pg/mL 14-17 years: 242-1291 pg/mL 18-29 years: 64-640 pg/mL 30-39 years: 60-650 pg/mL 40-49 years: 50-465 pg/mL >49 years: Not Established No reference range is provided for postmenopausal women because of the increased rate of bone turnover post-menopause. It is recommended that results for postmenopausal women be compared to the premenopausal reference range as this will give a better indication of their rate of bone loss. For additional information, please refer to https://education.[employer]faq/XNI651 (This link is being provided for informational/ educational purposes only.) Test Performed by [employer] [place], [facility], [address] [place] [address] Nikolai Mcgowan M.D., Ph.D., Director of Laboratories , [facility] [id number] 05/20/2025 9:05 AM CDT Earlene Vilchis MD LABORATORY Final Result [employer] , [place] [phone] * PTH - INTACT (05/20/2025 9:05 AM CDT) Pathologist [facility] PTH INTACT 69.7 18.4 - 80.1 PG/ML 05/20/2025 3:23 PM CDT [facility] 05/20/2025 9:05 AM CDT Earlene Vilchis MD LABORATORY Final Result [facility] [address] [place] [address], [place] [phone] * (ABNORMAL) HEMOGLOBIN, GLYCOSYLATED (05/20/2025 9:05 AM CDT) HGB A1C 5.7(H) <5.7 % 05/20/2025 9:33 AM CDT [facility] Comment: INCREASED RISK OF DIABETES <5.7% NON-DIABETES 5.7-6.4% INCREASED RISK FOR FUTURE DIABETES > OR = 6.5 CONSISTENT WITH DIABETES STANDARDS OF MEDICAL CARE IN DIABETES-2010 DIABETES CARE, 33(SUPP 1): S1-S61,2010 ESTIMATED AVG GLUCOSE 117 mg/dL 05/20/2025 9:33 AM CDT [facility] 05/20/2025 9:05 AM CDT Thang SHER LABORATORY Final Result [facility] [address] [place] [address], * (ABNORMAL) COMPREHENSIVE METABOLIC PANEL (05/20/2025 9:05 AM CDT) Pathologist [facility] GLUCOSE 99 70 - 99 MG/DL 05/20/2025 9:37 AM CDT [facility] BUN 15 7 - 18 MG/DL 05/20/2025 9:37 AM T [facility] CREATININE S/P/B 0.69 0.55 - 1.02 MG/DL 05/20/2025 9:37 AM T [facility] SODIUM S/P/B 142 136 - 145 MMOL/L 05/20/2025 9:37 AM T [facility] POTASSIUM S/P/B 4.0 3.5 - 5.1 MMOL/L 05/20/2025 9:37 AM T [facility] CHLORIDE S/P/B 104 100 - 108 MMOL/L 05/20/2025 9:37 AM T [facility] CO2 32.6(H) 21 - 32 MMOL/L 05/20/2025 9:37 AM [facility] CALCIUM S/P/B 8.6 8.5 - 10.1 MG/DL 05/20/2025 9:37 AM [facility] BILIRUBIN TOTAL S/P/B 0.5 0.2 - 1.2 MG/DL 05/20/2025 9:37 AM [facility] TOTAL PROTEIN S/P/B 5.8(L) 6.4 - 8.2 G/DL 05/20/2025 9:37 AM [facility] ALBUMIN S/P/B 3.2(L) 3.4 - 5.0 G/DL 05/20/2025 9:37 AM [facility] AST 11(L) 15 - 37 U/L 05/20/2025 9:37 AM [facility] ALT 21 14 - 55 U/L 05/20/2025 9:37 AM [facility] ALKALINE PHOSPHATASE S/P/B 52 50 - 136 U/L 05/20/2025 9:37 AM [facility] ANION GAP 5.4 5 - 15 MMOL/L 05/20/2025 9:37 AM [facility] BUN CREATININE RATIO 21.7 6 - 26 05/20/2025 9:37 AM [facility] A/G RATIO 1.2 1.0 - 2.0 RATIO 05/20/2025 9:37 AM [facility] GFR ESTIMATE >90 >90 ML/MIN/1.7 3 M2 05/20/2025 9:37 AM [facility] Comment: NOTE: eGFR is not calculated for patients <18 years of age. This is an estimated GFR calculation using the new CKD EPI creatinine equation without race and so does not require a correction factor for race. This estimated GFR should not be used for calculating drug doses. 05/20/2025 9:05 AM CDT Earlene Vilchis MD LABORATORY Final Result [facility] [address] [place] [address], [place] [phone] * IMMUNOFIXATION (05/20/2025 9:05 AM CDT) Pathologist [facility] IMMUNOFIXATION SERUM REPORT 05/23/2025 2:45 PM CDT [facility] Comment: Normal pattern. No monoclonal proteins detected. Test Performed by Kate Ibrahim, [facility], [address] [place] [address] Nikolai Mcgowan M.D., Ph.D., Director of Laboratories , [facility] [id number] 05/20/2025 9:05 AM CDT Earlene Vilchis MD LABORATORY Final Result Performing Organization Address City/[facility]/ZIP Co de Phone Number [employer] [facility] [address] [address], [place] [phone] * (ABNORMAL) PROTEIN, ELECTROPHORESIS (05/20/2025 9:05 AM CDT) Pathologist [facility] TOTAL PROTEIN (ELECTROPHORESIS SERUM) 5.2(L) 6.1 - 8.1 g/dL 05/22/2025 4:18 PM CDT [facility] ETHAN LLK[facility] ALBUMIN ELECTROPHORESIS S/P/B 3.4(L) 3.8 - 4.8 g/dL 05/22/2025 4:18 PM CDT [facility] ETHAN LLY XOHXR-0-SHHYNCIW S/P/B 0.3 0.2 - 0.3 g/dL 05/22/2025 4:18 PM CDT [facility] ETHAN LLY CRLDM-5-GCYJIJEN S/P/B 0.6 0.5 - 0.9 g/dL 05/22/2025 4:18 PM CDT [facility] ROBLES-CHRISTINATI LLY BETA 1 GLOBULIN S/P/B 0.4 0.4 - 0.6 g/dL 05/22/2025 4:18 PM CDT [facility] ROBLES-CHANTI LLY BETA 2 GLOBULIN S/P/B 0.2 0.2 - 0.5 g/dL 05/22/2025 4:18 PM CDT [facility] ROBLES-CHRISTINATI LLY GAMMA GLOBULIN S/P/B 0.4(L) 0.8 - 1.7 g/dL 05/22/2025 4:18 PM CDT [facility] ROBLES-CHANTI LLY ABNORMAL PROTEIN BAND 1 S/P/B REPORT 05/22/2025 4:18 PM CDT [facility] ROBL[facility]-CHANTI LLY Comment: No M Efren detected. Reference Range: None Detected ABNORMAL PROTEIN BAND 3 S/P/B END OF REPORT 05/22/2025 4:18 PM CDT [facility] SAVANAHKIERRA LLY ELECTROPHORESIS INTERPRETATION REPORT(A) 05/22/2025 4:18 PM CDT [facility] ROBLES-CHANTI LLY Comment: Consistent with hypogammaglobulinemia. Serum free light chains or urine immunofixation should be considered if plasma cell dyscrasias are a possible clinical diagnosis. Test Performed by Kate Ibrahim, [facility], [address] [place] [address] Nikolai Mcgowan M.D., Ph.D., Director of Laboratories , [facility] [id number] 05/20/2025 9:05 AM CDT us Earlene Vilchis MD LABORATORY Final Result [facility] [facility] [address] , * VITAMIN D, 25 [place] (05/20/2025 9:05 AM CDT) VITAMIN D 25 HYDROXY S/P/B 82 30 - 100 NG/ML 05/20/2025 10:13 AM CDT [facility] Comment: INTERPRETATION DEFICIENT <20 INSUFFICIENT 20-29 SUFFICIENT 30-100 05/20/2025 9:05 AM CDT Thang [facility] LABORATORY Final Result Performing Organization Address City/State/[facility] Co de Phone Number [facility] [address] [place] [address], * CORTISOL FREE URINE 24 HR (05/18/2025 5:30 AM CDT) VOLUME (U) 1,425 05/18/2025 7:25 PM CDT [facility] CORTISOL FREE (U) 5.9 4.0 - 50.0 mcg/24 h 05/25/2025 8:06 PM CDT [facility] Comment: This test was developed and its analytical performance characteristics have been determined by [facility]. It has not been cleared or approved by the FDA. This assay has been validated pursuant to the CLIA regulations and is used for clinical purposes. CREATININE 24HR (U) 1.00 0.50 - 2.15 g/24 h 05/25/2025 8:06 PM CDT [facility] YE[facility] Comment: Test performed by [employer] [address] [place] [id number] [employer] Teacher: Marie Fontaine MD,PHD,ROLAND Test Reported by [employer], [employer], [address] [place], [place] Nikolai Mcgowan M.D., Ph.D., Director of Laboratories , CLIA [id number] URINE SPECIMEN / Unknown 05/18/2025 5:30 AM CDT Thang SHER URINE ORDERABLES Final Result [facility] [place] [address] [place] [address], [place] [phone] [facility] [address] [place] [address], [place] [phone] * PROTEIN ELECTROPHORESIS URINE 24 HR (05/18/2025 5:30 AM CDT) VOLUME (U) 1,425 05/18/2025 7:25 PM CDT [facility] 24 HR VOL (MLS) 1,425 mL 3:31 AM CDT [facility] ROBLES-CHANTI LLY CREATININE 24HR (U) 1.00 0.50 - 2.15 g/24 h 05/22/2025 3:31 AM CDT [facility] TOTAL PROTEIN 24HR (U) 86 <150 mg/24 h 05/22/2025 3:31 AM CDT [facility] PROTEIN/CREATININE RATIO 85 <150 mg/g creat 05/22/2025 3:31 AM CDT [facility] ALBUMIN ELECTROPHORESIS (U) 100 % 05/22/2025 3:31 AM CDT [facility] URINE ALPHA1 0 % 05/22/2025 3:31 AM CDT [facility] URINE ALPHA2 0 % 05/22/2025 3:31 AM CDT [facility] BETA GLOBULIN (U) 0 % 025 3:31 AM CDT [facility] GAMMA GLOBULIN (U) 0 % 2024 3:31 AM CDT [facility] ABNORMAL PROTEIN BAND 1 (U) REPORT 05/22/2025 3:31 AM CDT [facility] Comment: No M-Efren detected. ABNORMAL PROTEIN BAND 3 (U) END OF REPORT 05/22/2025 3:31 AM CDT [facility] INTERPRETATION REPORT 05/22/2025 3:31 AM CDT [facility] Comment: Trace albumin present. Consistent with Normal pattern. Test Performed by [facility], [facility], [address] [place] [address] Nikolai Mcgowan M.D., Ph.D., Director of Laboratories , CLIA [id number] URINE SPECIMEN / Unknown 05/18/2025 5:30 AM CDT Thang SHER URINE ORDERABLES Final Result Performing Organization Address City/[facility]/ZIP Co de Phone Number [employer] [address] , [place] [phone] [facility] [address] [place] [address], [place] [phone] * CREATININE URINE 24 HR (05/18/2025 5:30 AM CDT) 24 HR VOL (MLS) 1,425 ML 7:09 PM CDT [facility] CREATININE 24HR (U) 1.0 0.7 - 1.5 GM/24HR 05/18/2025 7:23 PM CDT [facility] URINE SPECIMEN / Unknown 05/18/2025 5:30 AM CDT Thang SHER URINE ORDERABLES Final Result Performing Organization Address City/[facility]/ZIP Co de Phone Number [facility] [address] [place] [address], [place] [phone] * CALCIUM URINE 24 HR (05/18/2025 5:30 AM CDT) CALCIUM (U) 11.2 MG/DL 05/19/2025 12:46 PM CDT [facility] Comment:REFERENCE RANGE NOT ESTABLISHED CALC 24HR CA (U) 159.6 42.0 - 353.0 MG/24HR 05/19/2025 12:46 PM CDT [facility] VOLUME (U) 1,425 ML 05/19/2025 12:21 PM CDT [facility] URINE SPECIMEN / Unknown 05/18/2025 5:30 AM CDT us Thang SHER URINE ORDERABLES Final Result [facility] [address] [place] [address], [place] [phone] [id number] * MG SCREENING W KARY LETI DIGI (04/21/2025 12:55 PM CDT) Anatomical Region Laterality Modality Breast Bilateral Mammography 04/21/2025 3:59 PM CDT Impressions 04/24/2025 4:07 PM CDT ===== IMPRESSION: ===== 1. Stable mammographic appearance with no new findings to suggest malignancy in either breast. Assessment: ACR BI-RADS 2 - BENIGN FINDING(S) Recommendation: 1:Routine Screening Bilateral Comments: Ordered By: THANG MACKEY Interpreted By: Noreen Jordan, 04/21/2025 3:59 PM Narrative 04/24/2025 4:07 PM CDT [facility] [address] [place] [address] EXAMINATION: Digital bilateral screening mammogram with 3-D tomosynthesis EXAM DATE/TIME: 04/21/2025 12:20 PM REASON FOR EXAM: Routine screening Benign left-sided biopsy. High risk biopsy on the right side COMPARISON: 09/19/2021. 03/29/2023 Technique: Digital screening mammography of both breasts was performed in addition to 3-D Tomosynthesis technique. This study was read with the assistance of a computer-aided detection system. Tissue density: There are scattered areas of fibroglandular density. Findings: Stable postsurgical change in the right breast. Stable left-sided biopsy clips. There is no new focal asymmetry, dominant mass lesion, area of skin thickening, or cluster of suspicious appearing calcifications in either breast to suggest malignancy. Thang SHER MAMMO Final Result * BONE DENSITY/DEXA (04/16/2025 3:46 PM CDT) Anatomical Region Laterality Modality Bone Bone Density 04/19/2025 3:33 PM CDT Impressions 04/19/2025 3:35 PM CDT IMPRESSION: WHO Classification: osteoporosis. Overall decreased bone mineral density compared to prior study 12/11/2022. FRAX 10-year fracture risk: No score calculated as one or more T scores are at or below -2.5. Referred By: EARLENE VILCHIS Interpreted By: Milan Carvalho MD, 04/19/2025 3:33 PM Narrative 04/19/2025 3:[address] [facility] [address] [place] [address] Examination: Bone Density Axial Exam Date/Time: 04/16/2025 3:08 PM Reason For Exam: History of osteoporosis, on treatment. Comparison: DEXA 12/11/2022 Findings: DEXA bone densitometry The bone mineral density (BMD) was determined by dual-energy x-ray absorptiometry, the results are as follows: AP Lumbar Spine L1 through L4 BMD Patient (GM/SQCM): 0.614 T-Score (Standard deviations from young adult peak bone density): -3.9 (previously -2.5) Left femoral neck: BMD Patient (GM/SQCM): 0.581 T-Score (Standard deviations from young adult peak bone density): -2.4 (previously -2.0) Total left femur: BMD Patient (GM/SQCM): 0.725 T-Score (Standard deviations from young adult peak bone density): -1.8 (previously -1.6) Right femoral neck: BMD Patient (GM/SQCM): 0.589 T-Score (Standard deviations from young adult peak bone density): -2.3 (previously -2.1) Total right femur: BMD Patient (GM/SQCM): 0.676 T-Score (Standard deviations from young adult peak bone density): -2.2 (previously -2.1) Recommendations: All patients should ensure an adequate intake of dietary calcium and vitamin D. The NOF recommend adults under the age of 50 need 1000 mg of calcium and 400-800 IU of vitamin D daily. Effective therapy for the prevention and treatment of osteoporosis include biphosphonates. Follow-up: People with diagnosed cases of osteoporosis or at high risk for fracture should have regular bone mineral density test. For patients eligible for Medicare, routine testing is allowed once every 2 years. Testing frequency can be increased to one year for patients who have rapidly progressing disease, those who are receiving or discontinuing medical therapy to restore bone mass, or have additional risk factors. Procedure Note Milan Carvalho MD - 04/19/2025 [facility] [address] [place] [address] Examination: Bone Density Axial Exam Date/Time: 04/16/2025 3:08 PM Reason For Exam: History of osteoporosis, on treatment. Comparison: DEXA 12/11/2022 Findings: DEXA bone densitometry The bone mineral density (BMD) was determined bydual-energy x-ray absorptiometry, the results are as follows: AP Lumbar Spine L1 through L4 BMD Patient (GM/SQCM): 0.614 T-Score (Standard deviations from young adult peak bonedensity): -3.9 (previously -2.5) Left femoral neck: BMD Patient (GM/SQCM): 0.581 T-Score (Standard deviations from young adult peak bonedensity): -2.4 (previously -2.0) Total left femur: BMD Patient (GM/SQCM): 0.725 T-Score (Standard deviations from young adult peak bonedensity): -1.8 (previously -1.6) Right femoral neck: BMD Patient (GM/SQCM): 0.589 T-Score (Standard deviations from young adult peak bonedensity): -2.3 (previously -2.1) Total right femur: BMD Patient (GM/SQCM): 0.676 T-Score (Standard deviations from young adult peak bonedensity): -2.2 (previously -2.1) Recommendations: All patients should ensure an adequate intake of dietary calcium andvitamin D. The NOF recommend adults under the age of 50 need 1000 mg ofcalcium and 400-800 IU of vitamin D daily. Effective therapy for theprevention and treatment of osteoporosis include biphosphonates. Follow-up: People with diagnosed cases of osteoporosis or at high risk for fractureshould have regular bone mineral density test. For patients eligible forMedicare, routine testing is allowed once every 2 years. Testing frequencycan be increased to one year for patients who have rapidly progressingdisease, those who are receiving or discontinuing medical therapy torestore bone mass, or have additional risk factors. IMPRESSION: WHO Classification: osteoporosis. Overall decreased bone mineral densitycompared to prior study 12/11/2022. FRAX 10-year fracture risk: No score calculated as one or more T scoresare at or below -2.5. Referred By: EARLENE VILCHIS Interpreted By: Milan Carvalho MD, 04/19/2025 3:33 PM Earlene Vilchis MD DEXA Final Result * OCCULT BLOOD, FECES (06/06/2021 9:00 AM CDT) OCCULT BLOOD FECAL NEGATIVE NEGATIVE 06/06/2021 2:30 PM CDT [facility] STOOL SPECIMEN / Unknown 06/06/2021 9:00 AM CDT Davonte Cardenas MD,PHD BODY FLUIDS AND STOOLS ORD ERABLES Final Result [facility] [address] [place] [address], [place] [phone] from Last 3 Months or Most Recently Relevant to Health Maintenance Insurance MEDICARE Advance Directives Documents on File Type Date Recorded Patient Manager Revenue Expl anation Advance Directives and Living Will 08/30/2022 3:18 PM 08/29/2022 [place] STATUTORY SHORT FORM POA FOR HEALTH CARE * Full Code (Latest Code Status on File) Date Activated Date Inactivated Comments 08/28/2022 2:26 PM 08/29/2022 5:11 PM Care Teams Charge Aide Relationship Specialty Start Date End Date Thang Mackey PA [address] [place] [address] PCP - General PHYSICIAN CIVIL ENGINEERING DRAFTER 09/30/24 Issa Hawkins MD [facility]. [address] [address] [place] Plastic Eye Technician CARDIOVASCULAR DISEASE 06/17/18
--- OUTSIDE RECORDS SUMMARY | 2025-07-20 14:22 | XMS_ITS | Encounter Summary ---
Author Organization [facility] Address [facility] [place] [address] Care Team Providers Care Director Long Term Care Name Role Phone Issa Hawkins MD Unavailable [phone] Dana Jim Primary Care Provider [phone] Encounter Details Date Type Department Care Team (Late st Contact Info) Description 04/30/2025 Therapy Plan [facility] [address] [place], [place] [id number] Earlene Vilchis MD [address] [address] Social History Tobacco Use Types Packs/Day Years Used Date Smoking Tobacco: Former Cigarettes 1 35 0 09/17/1964 - 09/17/1999 Smokeless Tobacco: Never Alcohol Use Standard Drinks/Week Comments Yes 0 (1 standard drink = 0.6 oz pure alcohol) socially, but on cruise drank everyday Comments No Sex and Gender Information Value Date Recorded Sex Assigned at Female 09/30/2024 12:05 PM ANALYTICS ANALYST Legal Sex Female 8:31 PM CDT Gender Identity Female 09/07/2021 7:24 AM ANALYTICS ANALYST Sexual Orientation Straight 09/07/2021 7: 24 AM ANALYTICS ANALYST documented as of this encounter Functional Status * RETIRED Are you deaf or do you have serious difficulty hearing Answer Date of Assessment Author Status No 08/28/2022 1:31 PM ANALYTICS ANALYST Activ e * RETIRED Are you blind or do you have serious difficulty seeing, even when wearing glasses? Answer Date of Assessment Author Status No 08/28/2022 1:31 PM ANALYTICS ANALYST Activ e * Do you have serious difficulty walking or climbing stairs? Answer Date of Assessment Author Status No 08/28/2022 1:31 PM Marla Colon RN Active * Do you have difficulty dressing or bathing? Answer Date of Assessment Author Status No 08/28/2022 1:31 PM Marla Colon RN Active * Because of a physical, mental, or emotional condition, do you have difficulty doing errands alone such as visiting a doctor's office or shopping? Answer Date of Assessment Author Status No 08/28/2022 1:31 PM Marla Colon RN Active documented as of this encounter Mental Status * Because of a physical, mental, or emotional condition, do you have serious difficulty concentrating, remembering, or making decisions? Answer Entry Date Author Status No 08/28/2022 1:31 PM Marla Colon RN Active documented in this encounter Plan of Treatment Not on file documented as of this encounter Visit Diagnoses Diagnosis Osteoporosis- Primary Osteoporosis, unspecified documented in this encounter Care Teams Director Long Term Care Relationship Specialty Start Date End Date Dana Jim PA [address] [place] [address] PCP - General PHYSICIAN DIE KEEPER 09/30/24 Issa Hawkins MD [facility]. [address] [address] [place] Agricultural Appraiser CARDIOVASCULAR DISEASE 06/17/18 documented as of this encounter
--- OUTSIDE RECORDS SUMMARY | 2025-07-20 14:22 | XMS_ITS | Clinical Summary ---
Author Organization [facility] Address [address] [place] [address] Phone Care Team Providers Care Anesthesia Tech Name Role Phone Tiffanie Quinones Jodie DO [...] Virus (HCV) Screening 1950 TdaP Immunization 1950 Cologuard 1996 Colonoscopy 1996 Colorectal Cancer Screening 1996 Immunochemical Fecal Occult Blood 1996 Pneumococcal Immunization (5 0+ years) (1 of 1 - PCV) 2001 Zoster Immunization (1 of 2) 2001 Medicare Initial AWV G0438 08/17/2017 Influenza Immunization (#1) 2025 SARS-COV-2 Immunization ( season) 2025 08/01/2021, 12/06/2020, 10/28/2020 Respiratory Syncytial Virus (RSV) Immunization (Adult) (1 - 1-dose 75+ series) 2026 Hepatitis B Immunization Aged Out No longer eligible based on patient's age to complete this topic Human Papillomavirus (HPV) Immunization Aged Out No longer eligible b ased on patient's age to complete this topic Meningococcal Immunization (ACWY) Aged Out No longer eligible b ased on patient's age to complete this topic Rotavirus Immunization Aged Out No lo nger eligible based on patient's age to complete this topic Insurance MEDICARE Care Teams Anesthesia Tech Relationship Specialty Start Date End Date Tiffanie Quinones DO [address] [place] [address] PCP - General Family Medicine 01/18/20
--- NOTE | 2025-08-20 13:01 | P.PCNPFT_ITS ---
PFT Procedure Performed PFT Procedure Performed Spirometry with Pre/Post Bronchodilator Plethysmography (Lung Vol) Diffusing Cap (DLCO) Flow Vol Loop PFT Interpretation DOS: 07/20/2025 REQUESTING: Carlos Manuel Good APRN REASON FOR TESTING: Pulmonary fibrosis PULMONARY FUNCTION TESTS Results are reliable and reproducible. Repeatability of spirometry FEV1 maneuver pre and post bronchodilator is Grade A. GLI 2012 reference equations were used. Spirometry: The pre-bronchodilator FEV1 is 1.44 L, 70%, mildly decreased. The pre-bronchodilator FVC is 2.05 L,77%, normal. The FEV1/FVC ratio is 70%, normal. After bronchodilator, the FEV1 is 1.58 L, 77%, +10. The post- bronchodilator FVC is 2.18 L, 82%, +6. The FEV1/FVC ratio is 73%. Lung volumes: The total lung capacity is 4.10 L, 84%, normal. The functional residual capacity is 2.40 L, 86%, normal. The residual volume is 1.91 L, 87%, normal. The RV/TLC is 47%. Airway resistance is increased. Diffusion: DLCO is 11.1, 56%, decreased. The DLCO/VA is 4.23, 99%, normal. Flow volume loop: The flow volume loop shows mild coving in the expiratory limb.. IMPRESSION: This study shows mild decrease in FEV1 with a normal FVC and a normal FEV1/FVC ratio. No significant change with bronchodilator. Normal lung volumes, mild diffusion impairment which corrects for alveolar volume. Lack of response to bronchodilator should not preclude use of clinically indicated. Compared to a prior study on 12/31/2024 the FEV1 has decreased more than exp ected over the interval, previously was 1.63 L, 79% in the normal range and now is 1.44 L, 70% predicted. The remainder of the values are similar to this study 6 months earlier. Oly Lai MD
--- NOTE | 2025-08-20 13:15 | WPDSIXMINUTE ---
Six Minute Walk Procedure Procedure Performed Pulmonary Stress Test (6 min walk) Six Minute Walk Six Minute Walk: DATE OF SERVICE: 08/16/2025 REQUESTING: Carlos Manuel Good APRN REASON FOR TESTING: Pulmonary fibrosis SIX MINUTE WALK This test was conducted per ATS guidelines. The initial saturation was 94%, and initial heart rate was 86 beats per minute. The patient walked without stopping, completing 335 m/1100 ft. The saturation at the end of testing was 95%, and the heart rate was 103 beats per minute. The Naseem score for fatigue and dyspnea was 0 initially, and 1 at the end of testing. Saturation was maintained between 91% and 95% during testing. IMPRESSION: This is a normal study. The patient did not require supplemental oxygen with exertion. On a prior walk study 12/31/2024 the patient walked 366 m, 31 m longer compared to the current study. Oxygen was not indicated on the prior study. Clinical correlation recommended. Oly Lai MD
== END 2025-07-20 13:04 | disposition home or self-care (01) ==
PROVIDERS: PCP Physician Assistant Medical; Visit Provider Nurse Practitioner Family
DX: J84.10 Pulmonary fibrosis, unspecified (principal); R06.09 Other forms of dyspnea
CPT/HCPCS: 94060; 94618; 94726; 94729

== ENCOUNTER 2025-09-13 12:55 | Emergency (ER) | payer MEDICARE, SELFPAY ==
--- NOTE | ~2025-09-13 | XR_ITS ---
EXAMINATION: XR chest 2V DATE: 09/13/2025 13:38 INDICATION: Cough, post covid symptoms TECHNIQUE: Frontal and lateral views of the chest were obtained. COMPARISON: CT dated 12/31/2024. FINDINGS: Moderate cardiomegaly. Extensive chronic interstitial fibrosis of lungs with honeycombing in the upper and mid lung leiva similar to prior CT findings. No acute findings. Old compression fracture with kyphoplasty of mid thoracic vertebra. IMPRESSION: 1. Moderate cardiomegaly. 2. Extensive chronic fibrosis of lungs similar to prior imaging studies. Reviewed, dictated and finalized at location T. MANAGER
--- OUTSIDE RECORDS SUMMARY | 2025-09-13 12:58 | XMS_ITS | Clinical Summary ---
Author Organization [facility] Address [address] [place] [address] Care Team Providers Care Water Truck Driver Name Role Phone Issa Hawkins MD Unavailable [phone] Thang Jim Primary Care Provider [phone] Allergies Active Allergy Reactions Criticality Noted Date [...] - 07/03/2025 11:59 PM CDT Hospital Encounter [facility] [address] [place] [address] Thang Jim PA Discharge Disposition: Home or Self Care (Routine Discharge) 07/03/2025 Travel 06/23/2025 11:00 AM CDT - 06/23/2025 11:56 AM CDT Hospital Encounter [facility] [address] [place] [address] Rachael Hall MD Discharge Disposition: Home or Self Care (Routine Discharge) 06/23/2025 Orders Only [facility] [address] [place] [address] Thang Jim PA 06/23/2025 Orders Only [facility] [address] [place] [address] Rachael Hall MD 06/23/2025 Travel from Last 3 Months Immunizations Immunization [...] Sex Assigned at Female 09/30/2024 12:05 PM FELLER HAND Legal Sex Female 8:31 PM CDT Gender Identity Female 09/07/2021 7:24 AM FELLER HAND Sexual Orientation Straight 09/07/2021 7: 24 AM FELLER HAND Last Filed Vital Signs Vital Sign Reading Time Taken Comments Blood Pressure 128/78 07/22/2024 9:30 AM FELLER HAND Pulse 92 07/22/2024 9:30 AM FELLER HAND Temperature 36.6 C (97.8 F) 07/22/2024 9:30 AM FELLER HAND Respiratory Rate 18 07/22/2024 9:30 AM FELLER HAND Oxygen Saturation 95% 11/10/2023 7:43 AM FELLER HAND Inhaled Oxygen Concentration - - Weight 68.5 kg (151 lb) 07/22/2024 9:30 AM FELLER HAND Height 160 cm (5' 3) 11/10/2023 7:43 AM FELLER HAND Body Mass Index 26.75 11/10/2023 7:43 AM FELLER HAND Plan of Treatment Health Maintenance Due Date Last Done Comments Colorectal Cancer Screening Colonoscopy (10 Years) 1951 Hepatitis C 1969 Zoster Vaccines (1 of 2) 2001 Annual Medicare Wellness Visit 2016 PHQ-2 (Physician [place]) 09/17/2024 COVID-19 Vaccine ( season) 2025 10/23/2023, [...] this topic Medical Devices Implanted Type Area Power Line Installer Device Identifier Shelf Expiration Date Model / Serial / Lot Vertaplex Hv Implanted:Qt y: 1 on 08/29/2021 by Gentry Broderick MD at [facility] [employer] Cement Implant N/A: Thoracic CAL SPINE - DIV CAL BELÉN [id number] 10/17/2022 / / [id number] Procedures Procedure Name Priority Date/Time Associated Diagnosis Comments HC FERRITIN Routine 07/03/2025 2:19 PM CDT Iron deficiency anemia, unspecified XR LUMB SPINE 3V Routine 06/23/2025 11:2 8 AM CDT Osteoporosis, unspecified MG SCREENING W KARY LETI DIGI Routine 04/21/2025 12:55 PM CDT Screening mammogram for breast cancer BONE DENSITY/DEXA Routine 04/16/2025 3:4 6 PM CDT Age-related osteoporosis without current pathological fracture OCCULT BLOOD, FECES Routine 06/06/2021 9:00 AM CDT Diarrhea from Last 3 Months or Most Recently Relevant to Health Maintenance Results * FERRITIN (07/03/2025 2:19 PM CDT) FERRITIN 27.0 8.0 - 388.0 NG/ML 07/03/2025 3:16 PM CDT [facility] 07/03/2025 2:19 PM CDT Thang SHER LABORATORY Final Result [facility] [address] [place] [address], * XR LUMB SPINE 3V (06/23/2025 11:28 [...] 11:37 AM Narrative 06/23/2025 11:40 AM CDT [facility] [address] [facility] [place] [address] IMAGING STUDIES: XR LUMB SPINE 3V DATE: [...] Procedure Note Rasta Jordan MD - 06/23/2025 [facility] [address] [place] [address] IMAGING STUDIES: XR LUMB SPINE 3V DATE: [...] Provider Non-Staff GENERAL IMAGING Final Result * MG SCREENING W KARY LETI DIGI (04/21/2025 12:55 PM CDT) Anatomical Region Laterality Modality Breast Bilateral Mammography 04/21/2025 3:59 PM CDT Impressions 04/24/2025 4:07 PM CDT ===== IMPRESSION: ===== 1. Stable mammographic appearance with no new findings to suggest malignancy in either breast. Assessment: ACR BI-RADS 2 - BENIGN FINDING(S) Recommendation: 1:Routine Screening Bilateral Comments: Ordered By: THANG JIM Interpreted By: Noreen Jordan, 04/21/2025 3:59 PM Narrative 04/24/2025 4:07 PM CDT [facility] [address] [place] [address] EXAMINATION: Digital bilateral screening mammogram with 3-D [...] 3:33 PM Narrative 04/19/2025 3:35 PM CDT [facility] [address] [place] [address] Examination: Bone Density Axial Exam Date/Time: 04/16/2025 [...] Procedure Note Milan Carvalho MD - 04/19/2025 [facility] [address] [place] [address] Examination: Bone Density Axial Exam Date/Time: 04/16/2025 [...] FECAL NEGATIVE NEGATIVE 06/06/2021 2:30 PM CDT [facility] STOOL SPECIMEN / Unknown 06/06/2021 9:00 AM CDT Davonte Cardenas MD,PHD BODY FLUIDS AND STOOLS ORD ERABLES Final Result [facility] [address] [place] [address], [place] [phone] from Last 3 Months or Most Recently Relevant to Health Maintenance Insurance MEDICARE Advance Directives Documents on File Type Date Recorded Patient Steam Fitter Helper Expl anation Advance Directives and Living Will 08/30/2022 3:18 PM 08/29/2022 [place] STATUTORY SHORT FORM POA FOR HEALTH CARE * Full Code (Latest Code Status on File) Date Activated Date Inactivated Comments 08/28/2022 2:26 PM 08/29/2022 5:11 PM Care Teams Water Truck Driver Relationship Specialty Start Date End Date Thang Jim PA [facility] [place] [address] PCP - General PHYSICIAN JUKEBOX ROUTE DRIVER 09/30/24 Issa Hawkins MD [facility]. [address] [place] [address] [place] Fruit Distributor CARDIOVASCULAR DISEASE 06/17/18
--- OUTSIDE RECORDS SUMMARY | 2025-09-13 12:58 | XMS_ITS | Encounter Summary ---
Author Organization [facility] Address [address] [place] [address] Phone Care Team Providers Care Supply Tech Name Role Phone David Obregon MD Primary Care Provider [phone] Dana Jim Primary Care Provider [phone] Encounter Details Date Type Department Care Team [...] on file Legal Sex Female 11:32 PM PIT INSPECTOR Gender Identity Female 12/24/2019 7:05 PM CDT [...] on filedocumented in this encounter Care Teams Supply Tech Relationship Specialty Start Date End Date David Obregon MD [address] [place] [address] PCP - General Family Medicine 10/18/22 05/20/25 Dana Jim PA [address] [place] [address] PCP - General Physician Test Driller 05/21/25 documented as of this encounter
--- OUTSIDE RECORDS SUMMARY | 2025-09-13 12:58 | XMS_ITS | Encounter Summary ---
Author Organization [facility] Address [address] [place] [address] Phone Care Team Providers Care Civil Engineering Assistant Name Role Phone David Obregon MD Primary Care Provider [phone] Dana Jim Primary Care Provider [phone] Encounter Details Date Type Department Care Team [...] on file Legal Sex Female 11:32 PM SEARCH MARKETING SPECIALIST Gender Identity Female 12/24/2019 7:05 PM CDT [...] on filedocumented in this encounter Care Teams Civil Engineering Assistant Relationship Specialty Start Date End Date David Obregon MD [address] [place] [id number] PCP - General Family Medicine 10/18/22 05/20/25 Dana Jim PA [address] [place] [id number] PCP - General Physician Solid Waste Technician 05/21/25 documented as of this encounter
--- OUTSIDE RECORDS SUMMARY | 2025-09-13 12:58 | XMS_ITS | Clinical Summary ---
Author Organization [facility] Address [address] [place] [address] Phone Care Team Providers Care Egg Crater Name Role Phone Tiffanie Quinones Jodie DO [...] complete this topic Human Papillomavirus (HPV) Immunization (No Doses Required) Completed Meningococcal Immunization (ACWY) Aged Out No longer eligible b ased on patient's age to complete this topic Rotavirus Immunization Aged Out No lo nger eligible based on patient's age to complete this topic Insurance MEDICARE Care Teams Egg Crater Relationship Specialty Start Date End Date Tiffanie Quinones DO [address] [place] [id number] PCP - General Family Medicine 01/18/20
--- OUTSIDE RECORDS SUMMARY | 2025-09-13 12:58 | XMS_ITS | Encounter Summary ---
Author Organization [facility] Address [facility] [place] [address] Care Team Providers Care Spindle Sander Name Role Phone Issa Hawkins MD Unavailable [phone] Dana Jim Primary Care Provider [phone] Encounter Details Date Type Department Care Team (Late st Contact Info) Description 04/30/2025 Therapy Plan [facility] [address] [place], [place] [id number] Earlene Vilchis MD [address] [place] [id number] Social History Tobacco Use Types Packs/Day Years Used Date Smoking Tobacco: Former Cigarettes 1 35 0 09/17/1964 - 09/17/1999 Smokeless Tobacco: Never Alcohol Use Standard Drinks/Week Comments Yes 0 (1 standard drink = 0.6 oz pure alcohol) socially, but on cruise drank everyday Comments No Sex and Gender Information Value Date Recorded Sex Assigned at Female 09/30/2024 12:05 PM DIETITIAN Legal Sex Female 8:31 PM CDT Gender Identity Female 09/07/2021 7:24 AM DIETITIAN Sexual Orientation Straight 09/07/2021 7: 24 AM DIETITIAN documented as of this encounter Functional Status * RETIRED Are you deaf or do you have serious difficulty hearing Answer Date of Assessment Author Status No 08/28/2022 1:31 PM DIETITIAN Activ e * RETIRED Are you blind or do you have serious difficulty seeing, even when wearing glasses? Answer Date of Assessment Author Status No 08/28/2022 1:31 PM DIETITIAN Activ e * Do you have serious [...] unspecified documented in this encounter Care Teams Spindle Sander Relationship Specialty Start Date End Date Dana Jim PA [address] [place] [id number] PCP - General PHYSICIAN GEOLOGY ASSOCIATE 09/30/24 Issa Hawkins MD [facility]. [address] [address] Petroleum Circuit Board Repair Technician CARDIOVASCULAR DISEASE 06/17/18 documented as of this encounter
--- OUTSIDE RECORDS SUMMARY | 2025-09-13 12:58 | XMS_ITS | Clinical Summary ---
Author Organization [facility] Address [address] [place] [address] Care Team Providers Care Beauty Consultant Name Role Phone Dana Jim Primary Care Provider [phone] Allergies Active Allergy Reactions Criticality Noted Date [...] 1 drop nightly Activ e dextroamphetami ne-amphetamine (ADDERALL) 15 mg tablet 1.3333 tablets (20 mg total) Active DULoxetine DR (CYMBALTA) [...] 08/03/2021 Assessment & Plan (08/03/2021 5:49 PM GRANTS SPECIALIST): I looked Mrs. Herrera 's thyroid under [...] progression. Assessment & Plan (10/27/2019 1:35 PM GRANTS SPECIALIST): Patient CRP and IgE level are normal. He ESR is elevated at 48. CT scan of the chest with high-resolution reviewed. I will obtain 6 rheumatoid factor, LORIE panel, Anca panel and CURTIS panel. SOB (shortness of breath) 10/23/2019 Assessment & Plan (10/27/2019 1:34 PM GRANTS SPECIALIST): Continue with bronchodilators. I will obtain 2D echocardiogram for further evaluation of dyspnea. Mild intermittent asthma 10/23/2019 Assessment & Plan (01/08/2020 3:52 PM CDT): Continue with Symbicort and p.r.n. albuterol inhaler. Assessment & Plan (10/27/2019 1:34 PM GRANTS SPECIALIST): Continue with Symbicort and p.r.n. albuterol inhaler. Simple chronic bronchitis 09/23/2019 Assessment & Plan (10/06/2019 3:21 PM GRANTS SPECIALIST): PFT's show mild obstructive ventilatory defect with good response to bronchodilators. I will start her on Symbicort and continue with p.r.n. albuterol inhaler. Obtain IgE level. Abnormal CXR 09/23/2019 Assessment & Plan (10/06/2019 3:22 PM GRANTS SPECIALIST): I will obtain CT scan of the chest with high-resolution for further evaluation of lung parenchyma. Chronic cough 09/23/2019 Assessment & Plan (10/27/2019 1:35 PM GRANTS SPECIALIST): Cough is improved with inhaled bronchodilators which will be continued. Assessment & Plan (10/06/2019 3:22 PM GRANTS SPECIALIST): Obtain IgE level, give her a trial of inhaled corticosteroids. Obtain CT scan of the chest for further evaluation of lung parenchyma. Allergic rhinitis 09/23/2019 Assessment & Plan (01/08/2020 3:54 PM CDT): Continue with Flonase. Assessment & Plan (10/06/2019 3:22 PM GRANTS SPECIALIST): Start her on Flonase. Esophageal reflux 09/23/2019 Shortness of breath Encounters Date Type Department Care Team Description 08/20/2025 11:00 AM GRANTS SPECIALIST Office Visit [address] [place] [phone] Rachael Hall MD Osteoporosis without current pathological fracture, unspecified osteoporosis type (Primary Dx) 08/20/[address] [place] [phone] Rachael Hall MD 07/13/[address] [place] [phone] Rachael Hall MD from Last 3 Months Immunizations Immunization Administration [...] LICHEN SCLEROSUS: Q6 MO VULVAR EXAMS, CLOBETASOL AL ESOPHAGOGASTRODUODENOSCOP Y TRANSORAL DIAGNOSTIC Diagnostic Esophagogastroduodenoscopy - (Added by TW Conv) AL BX BREAST NEEDLE CORE W/O IMAGING GUIDANCE [...] of depression - (Added by TW Conv) Broken bones Neg Hx Kyphosis Neg Hx Scoliosis Neg Hx Relation Name Status Comments Daughter Father Mother [...] on file Legal Sex Female 11:32 PM GRANTS SPECIALIST Gender Identity Female 12/24/2019 7:05 PM [...] CDT Inhaled Oxygen Concentration - - Weight 71.2 kg (157 lb) 08/20/2025 11:09 AM GRANTS SPECIALIST verbal Height 157.5 cm (5' 2) 08/20/2025 11:09 AM GRANTS SPECIALIST Body Mass Index 28.72 08/20/2025 11:09 AM GRANTS SPECIALIST Plan of Treatment Health Maintenance Due Date Last Done Comments Colon Cancer Screening-Colonoscopy 1950 Fall Risk Assessment 1950 Hepatitis C Screening 1950 Hepatitis B Screening 1969 Zoster Vaccine (1 of 2) 2001 Well Visit 65+ 2016 Depression Screening 08/03/2022 08/03/2021 Covid-19 Vaccine (2024-2 6 season) 2025 10/23/2023, 07/05/2022, 08/01/2021, Additional [...] CDT Age-related osteoporosis without current pathological fracture SCREENING MAMMOGRAM Routine 10/13/2014 2:25 PM GRANTS SPECIALIST from Last 3 Months or Most Recently Relevant to Health Maintenance Results * Dexa TBS Axial Skeleton Bone Density 1 or more sites (05/21/2025 12:39 PM CDT) Anatomical Region Laterality Modality Wrist, Body N/A Radiographic Libra ging Narrative 05/21/2025 3:37 PM CDT Patient Name: Elaine Herrera Date of : 1950 Date of scan: 05/21/2025 Bone mineral density was performed on a Holo[employer]end[employer] Discovery Densitometer. Based on machine cross-calibration and [...] mineral density scan were prepared by Geri Russ(José Luis) CBDT who is accredited by the International Society of Clinical Densitometry. The overall patient assessment and scan interpretation were performed by Rachael Hall M.D. who is certified by the International Society of Clinical Densitometry. [id number] Rachael Hall MD IMG DXA PROCEDURES Final Result * Screening Mammogram (10/13/2014 2:25 PM GRANTS SPECIALIST) Anatomical Region Laterality Modality Breast N/A Mammography 10/13/2014 2:25 PM GRANTS SPECIALIST Narrative 10/14/2014 8:38 AM GRANTS SPECIALIST MAURA BURGESS M.D. FINAL REPORT ACC# Date Time Exam [id number] Oct 13, 2014 14:25:00 [facility] [id number] Screen Dig Brst Seth Bi EXAMINATION: Mammogram Technique: Bilateral Full Field Screening Mammography was performed with Tomosynthesis. Views obtained: bilateral craniocaudal and bilateral mediolateral oblique. Computer Aided Detection of the 2D images was performed with [employer]3 version 9.3. Mammogram Findings: The present examination has been compared to prior imaging studies performed at [facility] on 03/28/2013, 03/21/2013 and 07/27/2011. There are [...] M.D. FINAL REPORT ACC# Date Time Exam [id number] Oct 13, 2014 14:25:00 [facility] [id number] Screen Dig Brst Seth Bi EXAMINATION: Mammogram Technique: Bilateral Full Field Screening Mammography was performed with Tomosynthesis. Views obtained: bilateral craniocaudal and bilateral mediolateral oblique. Computer Aided Detection of the 2D images was performed with [employer].3 version 9.3. Mammogram Findings: The present examination has been compared to prior imaging studies performed at [facility] on 03/28/2013, 03/21/2013 and 07/27/2011. There are [...] CHOICE MEDICARE PPO HU[employer]NA CHOICE MEDICARE PPO HU[employer]NA CHOICE MEDICARE PPO Care Teams Beauty Consultant Relationship Specialty Start Date End Date Dana Jim PA [address] [place] [id number] PCP - General Physician Ad Compositor 05/21/25
--- OUTSIDE RECORDS SUMMARY | 2025-09-13 13:00 | XMS_ITS | Clinical Summary ---
Author Organization [facility] Address [address] [place] [address] Care Team Providers Care Still Operator Helper Name Role Phone No, Pcp ZINC MINER Primary Care Provider Unavailabl e Social History Tobacco Use Types Packs/Day Years Used Date Smoking Tobacco: Never Assessed Comments Unknown Sex and Gender Information Value Date Recorded Sex Assigned at Not on file Legal Sex Female 1:34 PM EDT Gender Identity Not on file Sexual Orientation Not on file Plan of Treatment Not on file Medical Devices Not on file Insurance MEDICARE MEDICARE Care Teams Still Operator Helper Relationship Specialty Start Date End Date No, Pcp, ZINC MINER N/A Do not use PCP - General Family Medicine 05/10/20
[2025-09-13 13:05] VITALS: BP 121/81; PULSE 83; RESP 18; TEMP 36.5; O2SAT 97
--- NOTE | 2025-09-13 14:02 | ED.URI ---
HPI - URI/Sore Throat General Chief Complaint: Upper Respiratory Infection Stated Complaint: Upper Respiratory Infection History of Present Illness HPI Narrative: Chief Complaint: Coughing and shortness of breath persisting for eight days. Patient Summary: The patient is experiencing respiratory symptoms post-COVID infection, including cough and dyspnea, with a history of interstitial lung disease and sleep apnea. History of Present Illness: The patient reports this is their third COVID-19 infection. They completed a course of Paxlovid on Sunday, three days ago. The patient has been coughing up thick yellow mucus for eight days, starting last Sunday. They experience periods where they cannot catch their breath, particularly during coughing fits. The patient also wakes up with severe headaches, which they attribute to not using their CPAP machine for sleep apnea. They have a history of interstitial lung disease and report no recent fever, nausea, vomiting, or diarrhea. They have been using albuterol inhalers and breathing treatments, having used one earlier today. Mucinex has not been effective. The patient is concerned about possible infection due to the color and consistency of their phlegm. Social History: - No relevant social history provided. Family History: - Not discussed in the transcript. Review of Systems: - Positive for cough with thick yellow mucus, shortness of breath, and severe morning headaches. - Negative for fever in the past few days, nausea, vomiting, and diarrhea. Vitals and Physical Exam findings: Not available. Assessment: The patient presents with respiratory symptoms post-COVID infection, including cough and shortness of breath, with a history of interstitial lung disease and sleep apnea. Concerns about possible infection due to sputum color. Related Data Home Medications ?Medication ?Instructions ?Recorded ?Confirmed ?Last Taken ?Type acetaminophen 650 mg 650 mg PO Q12H PRN Pain 10/14/19 06/23/25 Unknown History tablet,extended release (Tylenol Arthritis Pain) duloxetine 60 mg capsule,delayed 60 mg PO DAILY 11/08/23 06/23/25 Unknown History release (Cymbalta) dextroamphetamine-amphetamine ER 20 mg PO QAM 04/28/24 06/23/25 Unknown History 20 mg 24hr capsule,extend release (Adderall XR) sennosides 8.6 mg-docusate sodium 1 tab-cap PO QHS 08/04/24 06/23/25 Unknown History 50 mg tablet (Stool Softener-Laxative) trazodone 150 mg tablet 75 mg PO QHS 08/04/24 06/23/25 Unknown History bupropion HCl 300 mg 24 hr tablet, 300 mg PO QAM 11/20/24 06/23/25 Unknown History extended release bimatoprost 0.01 % eye drops drp RIGHT EYE 11/24/24 06/23/25 Unknown History (Lumigan) romosozumab-aqqg 210 mg/2.34 210 mg subcut MONTHLY 05/26/25 06/23/25 Unknown History mL(105 mg/1.17 mL x2)subcutaneous syringe (Evenity) Allergies Allergy/AdvReac Type Severity Reaction Status Date / Time cimetidine Allergy Severe Vomiting Verified 09/13/25 13:00 ranitidine Allergy Severe Nausea and Verified 09/13/25 13:00 Vomiting erythromycin base Allergy Intermediate Nausea and Verified 09/13/25 13:00 Vomiting Sulfa (Sulfonamide Allergy Intermediate Rash Verified 09/13/25 13:00 Antibiotics) atomoxetine (From Strattera) AdvReac orthostatic Verified 09/13/25 13:00 hypotension Review of Systems Review of Systems: All systems reviewed & are unremarkable except as noted in HPI and below Eyes: Eyes: Reports as per HPI ENT: Reports as per HPI Cardiovascular: Cardiovascular: Reports as per HPI Respiratory: Respiratory: Reports as per HPI Genitourinary: Genitourinary: Reports as per HPI Musculoskeletal: Musculoskeletal: Reports as per HPI Integumentary/Breasts: Skin/Breast: Reports as per HPI Neurologic: Reports as per HPI Psychiatric: Psychiatric: Reports as per HPI Endocrine: Endocrine: Reports as per HPI Hematologic/Lymphatic: Hematologic/Lymphatic: Reports as per HPI Allergic/Immunologic: Allergic/Immunologic: Reports as per HPI PMFSH Past Medical History Medical History (Updated 09/13/25 @ 14:04 by Sandra Aguillon APRN) ADD (attention deficit disorder) Dr. 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 MDD (major depressive disorder) Mild intermittent asthma BETSY on CPAP Osteoporosis not affecting current episode of care Palpitations Polio Pulmonary emphysema Pure hypercholesterolemia Sacral fracture Screening for cholesterol level (~07/18/19) Screening for deficiency anemia (~07/18/19) Severe osteopetrosis Vitamin D deficiency Surgical History Surgical History H/O kyphoplasty H/O: hysterectomy History of cataract surgery History of sinus surgery History of tonsillectomy and adenoidectomy Family History Family History Sibling Family history of obesity Family history of osteoporosis Depression Hypertension Family history of gastrointestinal disorder Family history of elevated blood lipids Family history of condition Family history of attention deficit hyperactivity disorder (ADHD) Diabetes mellitus Mother Family history of osteoporosis Depression Family history of diabetes mellitus in first degree relative Family history of atrial fibrillation Family history of congestive heart failure Diabetes mellitus Father Depression Family history of diabetes mellitus in first degree relative Family history of coronary artery disease Diabetes mellitus Family history of cardiovascular disease, Onset Age: 89 Other Family history of hypothyroidism Family history of mental disorder Social History Social History (Updated 06/22/25 @ 15:15 by Aryan Regalado) Social History: 06/17/25 patient declined sdoh Smoking packs per day: 0.75 Smoking cigarettes per day: 15.0 Years smoked: 35 Smoking pack-years: 26.25 Smoking status: Former smoker Tobacco type: cigarettes Smoking end date: 09/17/00 Alcohol intake: current Drinks per week: 3 Alcohol use details: WINE-GLASSES Substance use: never Substance use type: does not use Lack of Transportation: No Lack of Food: Never True Current Housing: I Have Housing Concerned About Future Housing: No Difficulty Paying Gas/Electric Bills: No Difficulty Paying for Meds: No Currently Unemployed: No Education: Master's Degree or Higher Difficulty w/ Childcare or Family Care: No Living arrangements: with family Occupation/Education: retired Additional occupation/education comments: RN at [employer] Gender identity (if verbalized by the patient): Female Spiritual care concerns: No Agree to blood products: Yes Exam Const: General: cooperative, healthy appearing, comfortable, no acute distress and well developed Orientation/consciousness: patient oriented x3 HENMT: Head: normal to inspection Eyes: General: appearance normal, both eyes and all related structures Resp: Effort & Inspection: normal respiratory effort and able to speak in complete sentences Auscultation: clear to auscultation bilaterally Cardio: Rate: regular rate Rhythm: regular rhythm Heart sounds: S1 normal heart sound present and S2 normal heart sound present Skin: General skin exam: normal color Neuro: General: patient oriented x3 Cognition (Neuro): normal cognition Speech: normal speech Psych: Mental Status: mental status grossly normal Course Course Level of Care: Express Care Visit Vital Signs Vital signs: Vital Signs Temperature 97.7 F 09/13/25 13:05 Pulse Rate 83 09/13/25 13:05 Respiratory Rate 18 09/13/25 13:05 Blood Pressure 121/81 09/13/25 13:05 Pulse Oximetry 97 09/13/25 13:05 Oxygen Delivery Room Air 09/13/25 13:05 Temperature 97.7 F 09/13/25 13:05 Pulse Rate 83 09/13/25 13:05 Respiratory Rate 18 09/13/25 13:05 Blood Pressure 121/81 09/13/25 13:05 Pulse Oximetry 97 09/13/25 13:05 Oxygen Delivery Room Air 09/13/25 13:05 [facility] MDM Narrative Medical decision making narrative: 75-year-old female HPI as noted in differentials as below. Chest x-ray to rule out acute pneumonia. Impression chest x-ray is moderate cardiomegaly and extensive chronic fibrosis of lung similar to prior imaging studies. Patient does have a history of interstitial lung disease and after reviewing chart on her last CT mild emphysema was noted. Will treat for COPD exacerbation at this time with the cefdinir and prednisone. Differential Diagnosis: 1. Post-COVID respiratory syndrome 2. Bacterial bronchitis or pneumonia 3. Exacerbation of interstitial lung disease 4. Sinusitis Plan: - Obtain a chest X-ray to evaluate for any underlying infection or changes in the lungs. - Continue current use of albuterol inhalers and breathing treatments as needed. - Monitor symptoms closely and follow up with primary care provider, Elizabeth Shirley. - Educate the patient on antibiotic resistance and the importance of appropriate use. - Consider further evaluation and treatment based on chest X-ray results. Differential Diagnosis Differential Diagnosis: Differential Diagnosis: 1. Post-COVID respiratory syndrome 2. Bacterial bronchitis or pneumonia 3. Exacerbation of interstitial lung disease 4. Sinusitis Imaging Data Attestation: I personally reviewed and interpreted this imaging study as follows: Radiologist's impression: ITS Impressions Chest X-Ray 09/13/25 13:43 IMPRESSION: 1. Moderate cardiomegaly. 2. Extensive chronic fibrosis of lungs similar to prior imaging studies. Discharge Plan Discharge Clinical Impression: Acute exacerbation of chronic obstructive pulmonary disease Patient Disposition: Home Condition: Stable Instructions: Antibiotic Form, COPD (Chronic Obstructive Pulmonary Disease) (ED) Additional Instructions: Debris had a chest x-ray today which showed no changes from previous CT finding. So there is no pneumonia. I did review your chart and it does appear that in your last CT there is some mild emphysema seen. So I am going to treat you today for COPD exacerbation which will be cefdinir which is an antibiotic 1 capsule twice a day for 5 days and prednisone 40 mg daily for 5 days. Any worsening in symptoms please go to the emergency department. You can use your albuterol inhaler as instructed. Patient Language: Swazi Prescriptions: New cefdinir 300 mg capsule 300 mg PO Q12H Qty: 10 0RF prednisone 20 mg tablet 40 mg PO DAILY Qty: 10 0RF No Action duloxetine [Cymbalta] 60 mg capsule,delayed release(DR/EC) 60 mg PO DAILY hydrocortisone 2.5 % cream 1 applic topical BID PRN (Reason: skin irritation) Qty: 30 1RF ipratropium-albuterol 0.5 mg-3 mg(2.5 mg base)/3 mL solution for nebulization 3 ml inhalation Q6H PRN (Reason: shortness of breath or wheezing) Qty: 360 2RF sennosides-docusate sodium [Stool Softener-Laxative] 8.6-50 mg tablet 1 tab-cap PO QHS trazodone 150 mg tablet 75 mg PO QHS acetaminophen [Tylenol Arthritis Pain] 650 mg tablet extended release 650 mg PO Q12H PRN (Reason: Pain) Evenity 210mg/2.34mL ( 105mg/1.17mLx2) syringe 210 mg subcut MONTHLY bupropion HCl 300 mg tablet extended release 24 hr 300 mg PO QAM Rx Instructions: Prescribed by Psych decreased back to 300mg (felt shaky) Lumigan 0.01 % drops RIGHT EYE dextroamphetamine-amphetamine [Adderall XR] 20 mg capsule,extended release 24hr 20 mg PO QAM albuterol sulfate 90 mcg/actuation HFA aerosol inhaler 2 inh inhalation Q4-6H PRN (Reason: shortness of breath or wheezing) Qty: 1 1RF famotidine 40 mg tablet See Rx Instructions .ROUTE .COMPLEX Qty: 90 3RF Dose Instruction: TAKE 1 TABLET AT BEDTIME Rx Instructions: TAKE 1 TABLET AT BEDTIME ferrous sulfate [Feosol] 325 mg (65 mg iron) tablet 325 mg PO DAILY Qty: 90 0RF Rx Instructions: OTC pantoprazole 40 mg tablet,delayed release (DR/EC) 40 mg PO DAILY Qty: 90 1RF hydrochlorothiazide 25 mg tablet 12.5 mg PO DAILY PRN (Reason: swelling) Qty: 45 1RF Rx Instructions: only to use if swelling in hands and feet. ropinirole 2 mg tablet 2 mg PO BID Qty: 180 1RF Paxlovid 300 mg (150 mg x 2)-100 mg tablets,dose pack See Rx Instructions PO .COMPLEX Qty: 30 0RF Rx Instructions: take TWO 150 mg tablets of nirmatrelvir with ONE 100 mg tablet of ritonavir twice daily for 5 days PO Follow-up/Referrals: Dana Jim PA-C [Primary Care Provider, [facility]] Time of Disposition: 14:11 Quality NIHSS Nursing Documentation ED NIHSS nursing documentation: reviewed/agree
== END 2025-09-13 14:16 | disposition home or self-care (01) ==
PROVIDERS: Emergency Provider Nurse Practitioner Family; PCP Physician Assistant Medical
DX: J44.1 Chronic obstructive pulmonary disease with (acute) exacerbation (principal); Z87.891 Personal history of nicotine dependence; I10 Essential (primary) hypertension; K21.9 Gastro-esophageal reflux disease without esophagitis; G47.33 Obstructive sleep apnea (adult) (pediatric); M81.0 Age-related osteoporosis without current pathological fracture; E70.0 Classical phenylketonuria; E55.9 Vitamin D deficiency, unspecified; F98.8 Other specified behavioral and emotional disorders with onset usually occurring in childhood and adolescence; F32.9 Major depressive disorder, single episode, unspecified
CPT/HCPCS: 71046; 99213; G0463